=== PATIENT | male | born 1950 | race Caucasian/White ===

== ENCOUNTER → 2023-07-22 10:59 | Outpatient (CLI) | payer MEDICARE, BC, SELFPAY ==
--- NOTE | 2023-07-22 | DI.MRI.S_ITS ---
PROCEDURE: MR PELIS WO/W CON INDICATIONS: MAL KATHRIN OF BLADDER TECHNIQUE: Coronal HASTE, sagittal T2 FSE, axial T1 FSE, axial and coronal nonbreath-hold T2 FSE. Axial dynamic VIBE during administration of contrast. Post-contrast axial and coronal VIBE/2-D FLASH with fat saturation from the iliac crests to the symphysis. Optional diffusion weighted imaging and ADC may be performed. COMPARISON: None. FINDINGS: Image quality: Excellent. Bowel and peritoneum: No pathologic free pelvic fluid. Inferior colon and small bowel loops are normal in caliber. Colonic diverticulosis without evidence of diverticulitis. Genitourinary system: Bladder wall trabeculation, predominantly at the posterior dome. No measurable mass is seen. There is wall stratification the urinary bladder. Bladder debris is present. No hydronephrosis. Bladder diverticula are present. Nodes and vessels: A pair of 6-7 mm short axis left obturator chain nodes (series 5, image 9). Soft tissues: No inguinal hernias. Bones: Marrow is normal in overall signal. IMPRESSION: Bladder wall trabeculation, without measurable mass. This underlying trabeculation could obscure a small mass . No invasion beyond the muscle is identified. No hydronephrosis. A pair of borderline enlarged left obturator chain lymph nodes, mildly suspicious for palma disease. Dictated by: Tommy Kumar M.D. on 07/22/2023 at 12:32 Approved by: Tommy Kumar M.D. on 07/22/2023 at 12:46
== END ==
PROVIDERS: PCP Nurse Practitioner Family; Referring Provider Urology; Visit Provider Urology
DX: C67.9 Malignant neoplasm of bladder, unspecified (principal); N32.89 Other specified disorders of bladder
CPT/HCPCS: 72197

== ENCOUNTER → 2023-12-08 12:05 | Outpatient (CLI) | payer MEDICARE, BC, SELFPAY ==
--- NOTE | 2023-12-08 12:07 | DI.MRI.S_ITS ---
PROCEDURE: MR PELIS WO/W CON INDICATIONS: MALIGNANT NEOPLASM OF URINARY BLADDER TECHNIQUE: Noncontrast coronal T1 spin echo and STIR, sagittal T1 spin echo with fat saturation and STIR, axial T1 spin echo and T2 fast spin echo with fat saturation. After the administration of contrast, axial/sagittal/coronal T1 spin echo with fat saturation through the pelvis . COMPARISON: [facility], MR, MR PELVIS WO/W CON, 07/22/2023, 11:23. FINDINGS: Image quality: Diagnostic Lower abdomen: Colonic diverticula. No small bowel obstruction in the lower abdomen. No pathologic ascites There is wall thickening and mucosal hyperemia of the sigmoid colon. Bladder: Diffuse trabeculations and diverticula. There is similar wall thickening in the left lateral wall compared to 07/22/2023. Wall thickening also involves the superior posterior wall. Mucosal hyperemia is seen. The distal ureters partially seen are ectatic Reproductive organs: Enlarged heterogeneous prostate with median lobe hypertrophy, partially visualized, likely sequelae of BPH. Consider correlation with PSA and if necessary, dedicated prostate MRI. Rectum: Unremarkable Vessels and lymph nodes: Prominent left obturator lymph node again seen, measuring a maximum short axis diameter of 7 mm (5/9). No aneurysmal vessel identified Pelvic wall: Unremarkable Bones: No acute or suspicious osseous finding. There are degenerative changes. IMPRESSION: Overall similar appearance of the bladder, with numerous trabeculations and diverticula, as well as wall thickening along the superior and left lateral aspect. Consider cystoscopy surveillance. Prominent left obturator lymph node again seen, measuring a maximum short axis diameter of 7 mm (5/9). No new or enlarging disease elsewhere. Wall thickening and mucosal hyperemia of the sigmoid colon, with numerous diverticula, likely chronic diverticular disease. Correlate with any symptoms and possible colonoscopy if not already obtained. Other findings above. Approved by: Usman Caicedo M.D. on 12/09/2023 at 11:58
== END ==
PROVIDERS: PCP Nurse Practitioner Family; Referring Provider Urology; Visit Provider Urology
DX: C67.9 Malignant neoplasm of bladder, unspecified (principal); N32.89 Other specified disorders of bladder; N32.3 Diverticulum of bladder; N40.0 Benign prostatic hyperplasia without lower urinary tract symptoms; K57.30 Diverticulosis of large intestine without perforation or abscess without bleeding
CPT/HCPCS: 72197; A9579

== ENCOUNTER → 2023-12-10 11:55 | Outpatient (CLI) | payer MEDICARE, BC, SELFPAY ==
--- NOTE | 2023-12-10 11:56 | DI.CT.S_ITS ---
PROCEDURE: CT CHEST W CON INDICATIONS: Malignant neoplasm of bladder, unspecified TECHNIQUE: After the administration of intravenous contrast, 5 mm thick sections acquired from the pulmonary apices to the posterior costophrenic angles. 1 mm axial lung, 5 mm thick coronal and sagittal reformats and 7 mm axial MIP were acquired. For radiation dose reduction, the following was used: automated exposure control, adjustment of mA and/or kV according to patient size. COMPARISON: None. FINDINGS: Image quality: Diagnostic. Lower Neck: No enlarged lymph nodes. Thyroid: No thyroid nodules which require sonographic follow up, per consensus guidelines. Axillae: No enlarged lymph nodes. Chest Wall: Unremarkable. Bones: Unremarkable. Lungs and Pleura: No pneumothorax or pleural effusions. No consolidation or suspicious nodules. A few bronchial secretions are present. Heart: Heart size is normal. No pericardial effusion. Thoracic Vessels: The aorta and pulmonary arteries demonstrate normal size. Mediastinum and Chantel: No enlarged lymph nodes. Esophagus: No wall thickening. No hiatal hernia. Upper Abdomen: Visualized upper abdomen solid organs and bowel loops appear normal. IMPRESSION: No evidence of metastatic disease in the chest. Dictated by: Tommy Kumar M.D. on 12/11/2023 at 9:59 Approved by: Tommy Kumar M.D. on 12/11/2023 at 10:08
[2023-12-10 13:19] LABS: Appearance Urine UA SL CLOUDY; Bilirubin Urine UA NEGATIVE (NEGATIVE); Color Urine UA YELLOW; Glucose Urine UA NEGATIVE (Negative); Ketones Urine UA NEGATIVE (NEGATIVE); Leukocyte Esterase Urine UA TRACE (NEGATIVE); Nitrite Urine UA NEGATIVE (Negative); Occult Blood Urine UA 3+ (Negative); Protein Urine UA TRACE (Negative); Specific Gravity Urine UA 1.025 (1.000-1.035); Urobilinogen Urine UA 0.2 E.U./dL (0.2); pH Urine UA 5.5 (4.5-8.0)
[2023-12-10 13:22] LABS: Urine Volume 10mL (spun)
[2023-12-10 13:24] LABS: Bacteria Urine None Seen; Culture Indicated Urine Cult Not Indicated; RBC Urine 10-30/HPF (0-5/HPF); Squamous Epithelial Cell Urine None Seen (0-5/HPF); WBC Urine None Seen (0-5/HPF)
[2023-12-10 14:06] LABS: Estimated Glomerular Filt Rate > 60 mL/min (>60)
== END ==
PROVIDERS: Radiology Diagnostic Radiology; PCP Nurse Practitioner Family; Referring Provider Urology; Visit Provider Urology
DX: C67.9 Malignant neoplasm of bladder, unspecified (principal)
CPT/HCPCS: 36415; 71260; 81001; 82565; Q9967

== ENCOUNTER → 2023-12-21 14:26 | Outpatient (CLI) | payer MEDICARE, BC, SELFPAY ==
--- NOTE | 2023-12-21 14:28 | DI.CT.S_ITS ---
PROCEDURE: CT CHEST ABD PEL W CON INDICATIONS: UROTHELIAL CANCER TECHNIQUE: After the administration of intravenous contrast, 5 mm thick sections acquired from the lung apices to the symphysis. 5 mm coronal and sagittal reformats were performed, with additional 7 mm MIP reformats through the lungs. For radiation dose reduction, the following was used: automated exposure control, adjustment of mA and/or kV according to patient size. COMPARISON: [facility], CT, CT CHEST W CON, 12/10/2023, 14:13[facility], MR, MR PELVIS WO W CON, 12/08/2023, 12:14. FINDINGS: Image quality: Diagnostic Lungs and pleura: No dense airspace disease. Scattered scarring atelectasis. Focal pleural thickening is seen in the superior segment of the right lower lobe. No drainable effusions. Mediastinum, heart, and esophagus: No hiatal hernia. Normal heart size. No pathologic lymph nodes by size criteria. Chest wall and thyroid: Unremarkable chest wall and thyroid Liver: Unremarkable Gallbladder and biliary system: Unremarkable, nondilated Pancreas: No ductal dilation Spleen: Nonenlarged Adrenals: No discrete nodules Kidneys: No solid mass or hydronephrosis. Right renal cyst is present. No complicated or solid lesion requiring follow-up identified. Right lower pole nonobstructing calculus is seen. Subcentimeter lesions are too small to characterize, probably also cysts Vessels and lymph nodes: Main portal vein is not well assessed due to mixing artifact. 6-7 mm left obturator nodes are again seen. 2/114. No enlarged retroperitoneal lymph nodes by size criteria. No abdominal aortic aneurysm. Bowel and peritoneum: No evidence of small bowel obstruction. Colonic diverticula. Distal colonic wall thickening is present, likely chronic diverticular disease, which could be better evaluated with colonoscopy. Body wall: Small fat containing left inguinal hernia. Small fat containing umbilical hernia. Pelvis: Irregular wall thickening of the bladder, particularly at the superior aspect and left aspect. There are numerous diverticula in trabeculations. Heterogeneous prostate with probable median lobe hypertrophy and sequelae of BPH. Consider PSA correlation. Bones: Degenerative changes. IMPRESSION: Wall thickening of the bladder at the dome and left lateral aspect again seen, consider cystoscopy correlation. Prominent left obturator lymph nodes are also again seen. No active metastatic disease identified in the chest or abdomen. Other findings as above. Dictated by: Usman Caicedo M.D. on 12/21/2023 at 16:39 Approved by: Usman Caicedo M.D. on 12/21/2023 at 16:49
== END ==
PROVIDERS: PCP Nurse Practitioner Family; Referring Provider Internal Medicine Hematology & Oncology; Visit Provider Internal Medicine Hematology & Oncology
DX: C68.9 Malignant neoplasm of urinary organ, unspecified (principal); N32.3 Diverticulum of bladder; N32.89 Other specified disorders of bladder; N28.1 Cyst of kidney, acquired; N20.0 Calculus of kidney; K57.90 Diverticulosis of intestine, part unspecified, without perforation or abscess without bleeding; K40.90 Unilateral inguinal hernia, without obstruction or gangrene, not specified as recurrent; K42.9 Umbilical hernia without obstruction or gangrene
CPT/HCPCS: 71260; 74177; Q9967

== ENCOUNTER → 2023-12-29 13:16 | Outpatient (CLI) | payer MEDICARE, BC, SELFPAY ==
[2023-12-29 14:50] LABS: Add Manual Diff / Slide Review NO; Basophils Absolute Auto 100 /uL (0-100); Eosinophils Absolute Auto 500 /uL (0-450); Eosinophils Percent Auto 8.7 % (2-4); Hematocrit 38.9 % (41-53); Hemoglobin 13.2 g/dL (13.5-17.5); Lymphocytes Absolute Auto 1400 /uL (1100-4500); Lymphocytes Percent Auto 24.6 % (25-40); Mean Corpuscular HGB Conc 33.8 % (30-36); Mean Corpuscular Volume 88.5 fL (80-100); Monocytes Absolute Auto 500 /uL (0-900); Monocytes Percent Auto 9.5 % (3-14); Neutrophils Absolute Auto 3100 /uL (1500-7000); Neutrophils Percent Auto 56.2 % (50-75); Platelet Count 243 X10^3/uL (150-400); Red Cell Distribution Width 15.6 % (11.6-14.8); White Blood Cell Count 5.5 X10^3/uL (4.5-11.0)
[2023-12-29 14:58] LABS: Alanine Aminotransferase 32 IU/L (<50); Albumin Globulin Ratio 1.6 (1.0-2.8); Alkaline Phosphatase 68 U/L (38-126); Aspartate Aminotransferase 30 IU/L (17-59); BUN Creatinine Ratio 17.6 (6-22); Bilirubin Total 0.8 mg/dL (0.2-1.3); Blood Urea Nitrogen 16 mg/dL (9-20); Carbon Dioxide 29 mmol/L (22-32); Chloride 111 mmol/L (98-107); Estimated Glomerular Filt Rate > 60 mL/min (>60); Globulin 2.5 g/dL (1.7-4.1); Glucose 96 mg/dL (80-110); HEMOLYSIS < 15 (0-50); Phosphorous 3.6 mg/dL (2.3-3.7); Potassium 4.4 mmol/L (3.4-5.1); Sodium 141 mmol/L (137-145); Total Protein 6.5 g/dL (6.3-8.2)
== END ==
PROVIDERS: PCP Nurse Practitioner Family; Referring Provider Internal Medicine Hematology & Oncology; Visit Provider Internal Medicine Hematology & Oncology
DX: C67.9 Malignant neoplasm of bladder, unspecified (principal); C67.4 Malignant neoplasm of posterior wall of bladder
CPT/HCPCS: 36415; 80053; 84100; 85025

== ENCOUNTER → 2024-01-06 14:23 | Outpatient (CLI) | payer MEDICARE, BC, SELFPAY ==
[2024-01-06 15:34] LABS: Alanine Aminotransferase 63 IU/L (<50); Albumin 3.6 g/dL (3.5-5.0); Albumin Globulin Ratio 1.5 (1.0-2.8); Alkaline Phosphatase 64 U/L (38-126); Aspartate Aminotransferase 31 IU/L (17-59); BUN Creatinine Ratio 30.3 (6-22); Bilirubin Total 1.7 mg/dL (0.2-1.3); Blood Urea Nitrogen 27 mg/dL (9-20); Calcium 8.6 mg/dL (8.4-10.2); Carbon Dioxide 27 mmol/L (22-32); Chloride 104 mmol/L (98-107); Estimated Glomerular Filt Rate > 60 mL/min (>60); Globulin 2.4 g/dL (1.7-4.1); Glucose 78 mg/dL (80-110); HEMOLYSIS < 15 (0-50); Potassium 3.9 mmol/L (3.4-5.1); Sodium 134 mmol/L (137-145)
== END ==
PROVIDERS: PCP Nurse Practitioner Family; Referring Provider Internal Medicine Hematology & Oncology; Visit Provider Internal Medicine Hematology & Oncology
DX: C67.9 Malignant neoplasm of bladder, unspecified (principal)
CPT/HCPCS: 36415; 80053

== ENCOUNTER → 2024-01-07 11:56 | Outpatient (CLI) | payer MEDICARE, BC, SELFPAY ==
[2024-01-07 13:23] LABS: Add Manual Diff / Slide Review NO; Basophils Absolute Auto 0 /uL (0-100); Basophils Percent Auto 0.1 % (0-2); Eosinophils Absolute Auto 100 /uL (0-450); Eosinophils Percent Auto 3.2 % (2-4); Hematocrit 39.3 % (41-53); Hemoglobin 13.3 g/dL (13.5-17.5); Lymphocytes Absolute Auto 900 /uL (1100-4500); Mean Corpuscular HGB Conc 33.8 % (30-36); Mean Corpuscular Hemoglobin 30.1 PG (26-34); Mean Corpuscular Volume 89.1 fL (80-100); Monocytes Absolute Auto 0 /uL (0-900); Neutrophils Absolute Auto 2100 /uL (1500-7000); Neutrophils Percent Auto 66.7 % (50-75); Platelet Count 131 X10^3/uL (150-400); Red Blood Cell Count 4.41 X10^6/uL (4.5-5.9); Red Cell Distribution Width 15.3 % (11.6-14.8); White Blood Cell Count 3.2 X10^3/uL (4.5-11.0)
[2024-01-07 13:41] LABS: Phosphorous 4.3 mg/dL (2.3-3.7)
[2024-01-08 13:16] LABS: Alanine Aminotransferase 53 IU/L (<50); Albumin 3.3 g/dL (3.5-5.0); Albumin Globulin Ratio 1.2 (1.0-2.8); Alkaline Phosphatase 67 U/L (38-126); Aspartate Aminotransferase 26 IU/L (17-59); BUN Creatinine Ratio 28.4 (6-22); Bilirubin Total 1.1 mg/dL (0.2-1.3); Blood Urea Nitrogen 27 mg/dL (9-20); Calcium 8.7 mg/dL (8.4-10.2); Carbon Dioxide 28 mmol/L (22-32); Chloride 103 mmol/L (98-107); Estimated Glomerular Filt Rate > 60 mL/min (>60); Globulin 2.8 g/dL (1.7-4.1); Glucose 114 mg/dL (80-110); HEMOLYSIS < 15 (0-50); Potassium 4.3 mmol/L (3.4-5.1); Sodium 135 mmol/L (137-145); Total Protein 6.1 g/dL (6.3-8.2)
== END ==
PROVIDERS: PCP Nurse Practitioner Family; Referring Provider Internal Medicine Hematology & Oncology; Visit Provider Internal Medicine Hematology & Oncology
DX: C67.9 Malignant neoplasm of bladder, unspecified (principal)
CPT/HCPCS: 36415; 80053; 84100; 85025

== ENCOUNTER → 2024-01-11 13:08 | Outpatient (CLI) | payer MEDICARE, BC, SELFPAY ==
--- NOTE | 2024-01-11 13:14 | DI.US.S_ITS ---
PROCEDURE: US PERIPH VENOUS UP EXTREM LT INDICATIONS: PAIN TECHNIQUE: Real-time imaging, as well as color and pulse Doppler interrogation, was performed of the upper extremity deep veins from the inferior neck to the antecubital fossa. COMPARISON: None. FINDINGS: The internal jugular vein, visualized portions of the subclavian vein, axillary, and brachial veins are free of intraluminal thrombus. Where physically possible, the veins are normally compressible. Color and pulse Doppler demonstrate normal intraluminal flow, with expected phasicity and pulsatility. Additional scanning of the cephalic vein of the superficial system demonstrates normal compressibility, without thrombus. There is intraluminal thrombus with loss of compressibility in the basilic vein. IMPRESSION: Intraluminal thrombus appearing partially occlusive is present in the basilic vein. Dictated by: Sandra Marquez M.D. on 01/11/2024 at 14:53 Approved by: Sandra Marquez M.D. on 01/11/2024 at 14:54
== END ==
PROVIDERS: PCP Nurse Practitioner Family; Referring Provider Nurse Practitioner Family; Visit Provider Nurse Practitioner Family
DX: I82.612 Acute embolism and thrombosis of superficial veins of left upper extremity (principal); M79.602 Pain in left arm
CPT/HCPCS: 93971

== ENCOUNTER → 2024-01-20 11:48 | Outpatient (CLI) | payer MEDICARE, BC, SELFPAY ==
[2024-01-20 12:52] LABS: Add Manual Diff / Slide Review NO; Basophils Absolute Auto 0 /uL (0-100); Basophils Percent Auto 0.7 % (0-2); Eosinophils Absolute Auto 100 /uL (0-450); Eosinophils Percent Auto 3.7 % (2-4); Hematocrit 34.6 % (41-53); Hemoglobin 11.6 g/dL (13.5-17.5); Lymphocytes Absolute Auto 1000 /uL (1100-4500); Lymphocytes Percent Auto 41.2 % (25-40); Mean Corpuscular HGB Conc 33.7 % (30-36); Mean Corpuscular Hemoglobin 30.2 PG (26-34); Mean Corpuscular Volume 89.7 fL (80-100); Monocytes Absolute Auto 300 /uL (0-900); Monocytes Percent Auto 11.1 % (3-14); Neutrophils Absolute Auto 1000 /uL (1500-7000); Neutrophils Percent Auto 43.3 % (50-75); Platelet Count 355 X10^3/uL (150-400); Red Blood Cell Count 3.86 X10^6/uL (4.5-5.9); Red Cell Distribution Width 14.7 % (11.6-14.8); White Blood Cell Count 2.4 X10^3/uL (4.5-11.0)
[2024-01-20 13:45] LABS: Alanine Aminotransferase 23 IU/L (<50); Albumin 3.4 g/dL (3.5-5.0); Albumin Globulin Ratio 1.4 (1.0-2.8); Alkaline Phosphatase 77 U/L (38-126); Aspartate Aminotransferase 23 IU/L (17-59); BUN Creatinine Ratio 16.9 (6-22); Bilirubin Total 0.4 mg/dL (0.2-1.3); Blood Urea Nitrogen 14 mg/dL (9-20); Calcium 8.7 mg/dL (8.4-10.2); Carbon Dioxide 29 mmol/L (22-32); Chloride 107 mmol/L (98-107); Estimated Glomerular Filt Rate > 60 mL/min (>60); Globulin 2.5 g/dL (1.7-4.1); Glucose 115 mg/dL (80-110); HEMOLYSIS < 15 (0-50); Phosphorous 3.4 mg/dL (2.3-3.7); Potassium 4.1 mmol/L (3.4-5.1); Sodium 138 mmol/L (137-145); Total Protein 5.9 g/dL (6.3-8.2)
== END ==
PROVIDERS: PCP Nurse Practitioner Family; Referring Provider Internal Medicine Hematology & Oncology; Visit Provider Internal Medicine Hematology & Oncology
DX: C67.4 Malignant neoplasm of posterior wall of bladder (principal)
CPT/HCPCS: 36415; 80053; 84100; 85025

== ENCOUNTER → 2024-01-26 14:31 | Outpatient (CLI) | payer MEDICARE, BC, SELFPAY ==
[2024-01-26 15:46] LABS: Add Manual Diff / Slide Review NO; Basophils Absolute Auto 0 /uL (0-100); Basophils Percent Auto 1.3 % (0-2); Eosinophils Absolute Auto 100 /uL (0-450); Eosinophils Percent Auto 3.1 % (2-4); Hematocrit 32.7 % (41-53); Hemoglobin 11.3 g/dL (13.5-17.5); Lymphocytes Absolute Auto 700 /uL (1100-4500); Lymphocytes Percent Auto 26.2 % (25-40); Mean Corpuscular HGB Conc 34.5 % (30-36); Mean Corpuscular Hemoglobin 30.5 PG (26-34); Mean Corpuscular Volume 88.4 fL (80-100); Monocytes Absolute Auto 100 /uL (0-900); Monocytes Percent Auto 5.2 % (3-14); Neutrophils Absolute Auto 1800 /uL (1500-7000); Neutrophils Percent Auto 64.2 % (50-75); Platelet Count 472 X10^3/uL (150-400); Red Blood Cell Count 3.69 X10^6/uL (4.5-5.9); Red Cell Distribution Width 14.9 % (11.6-14.8); White Blood Cell Count 2.8 X10^3/uL (4.5-11.0)
[2024-01-26 16:05] LABS: Alanine Aminotransferase 60 IU/L (<50); Albumin 3.5 g/dL (3.5-5.0); Albumin Globulin Ratio 1.5 (1.0-2.8); Alkaline Phosphatase 74 U/L (38-126); Aspartate Aminotransferase 32 IU/L (17-59); BUN Creatinine Ratio 22.6 (6-22); Bilirubin Total 0.6 mg/dL (0.2-1.3); Blood Urea Nitrogen 26 mg/dL (9-20); Calcium 8.5 mg/dL (8.4-10.2); Carbon Dioxide 28 mmol/L (22-32); Chloride 103 mmol/L (98-107); Estimated Glomerular Filt Rate > 60 mL/min (>60); Globulin 2.4 g/dL (1.7-4.1); Glucose 101 mg/dL (80-110); HEMOLYSIS < 15 (0-50); Phosphorous 4.4 mg/dL (2.3-3.7); Potassium 4.5 mmol/L (3.4-5.1); Sodium 136 mmol/L (137-145); Total Protein 5.9 g/dL (6.3-8.2)
== END ==
PROVIDERS: PCP Nurse Practitioner Family; Referring Provider Internal Medicine Hematology & Oncology; Visit Provider Internal Medicine Hematology & Oncology
DX: C67.4 Malignant neoplasm of posterior wall of bladder (principal)
CPT/HCPCS: 36415; 80053; 84100; 85025

== ENCOUNTER → 2024-02-03 10:00 | Outpatient (CLI) | payer MEDICARE, BC, SELFPAY ==
--- NOTE | 2024-02-03 10:02 | DI.CT.S_ITS ---
PROCEDURE: CT CHEST ABD PEL W CON INDICATIONS: UROTHELIAL CANCER TECHNIQUE: After the administration of intravenous contrast, 5 mm thick sections acquired from the lung apices to the symphysis. 5 mm coronal and sagittal reformats were performed, with additional 7 mm MIP reformats through the lungs. For radiation dose reduction, the following was used: automated exposure control, adjustment of mA and/or kV according to patient size. COMPARISON: [facility], CT, CT CHEST ABD PEL W CON, 12/21/2023, 15:36. FINDINGS: Image quality: Excellent. CHEST: Lower Neck: No enlarged lymph nodes. Thyroid: No thyroid nodules which require sonographic follow up, per consensus guidelines. Axillae: No enlarged lymph nodes. Chest Wall: Unremarkable. Lungs and Pleura: No pneumothorax or pleural effusions. Stable 2 mm solid nodule in the posterior right upper lobe (series 3, image 102). Stable subpleural scarring in the superior right lower lobe. Heart: Heart size is normal. No pericardial effusion. Thoracic Vessels: The aorta and pulmonary arteries demonstrate normal size. Mediastinum and Chantel: No enlarged lymph nodes. Esophagus: No wall thickening. No hiatal hernia. ABDOMEN: Liver: Stable subcentimeter hypoattenuating lesion in segment 3 (series 2, image 73). Gallbladder: No radiopaque gallstones or wall thickening. Biliary ducts: No biliary dilation. Pancreas: No ductal dilation. Spleen: Size is within normal limits. Adrenal Glands: No adrenal nodules. Kidneys and Ureters: No hydronephrosis. No solid mass. No complex renal cystic lesion which requires follow up. 5 mm nonobstructing right-sided nephrolithiasis. Mild dilation of the distal left ureter. Stomach and Bowel: Normal colonic caliber, without significant wall thickening. Colonic diverticulosis without evidence of diverticulitis. Peritoneum: No abnormal intraperitoneal fluid. No free air. Ventral Wall: No significant ventral hernia. Abdominal Nodes: No retroperitoneal or mesenteric adenopathy by size criteria. Vessels: Aorta and inferior vena cava are normal in size. PELVIS: Pelvic Organs: Unremarkable. Bladder: Stable wall thickening of the bladder dome. There is perivesicular fat stranding and irregular contour of the bladder dome, most consistent with extension beyond the muscular layer (series 2, image 117). Pelvic Nodes: The left obturator chain nodes have slightly decreased in size, measuring 4 mm and 5.5 mm short axis, previously 5.5 and the 6.1 mm. Miscellaneous: No inguinal hernias are seen. Bones: No aggressive osseous abnormality. IMPRESSION: Similar appearance of the bladder dome mass, with evidence invasion beyond the bladder wall. Mild left-sided ureterectasis is present. Slight interval decrease in size of the left obturator chain nodes. No definite evidence of metastatic disease. Dictated by: Tommy Kumar M.D. on 02/03/2024 at 17:21 Approved by: Tommy Kumar M.D. on 02/03/2024 at 17:29
== END ==
LOC: CT 10:01
PROVIDERS: PCP Nurse Practitioner Family; Referring Provider Nurse Practitioner Family; Visit Provider Nurse Practitioner Family
DX: C68.9 Malignant neoplasm of urinary organ, unspecified (principal); N13.4 Hydroureter; K57.90 Diverticulosis of intestine, part unspecified, without perforation or abscess without bleeding
CPT/HCPCS: 71260; 74177; Q9967

== ENCOUNTER → 2024-02-04 15:46 | Outpatient (CLI) | payer MEDICARE, BC, SELFPAY ==
--- NOTE | 2024-02-04 15:47 | DI.US.S_ITS ---
PROCEDURE: US PERIPH VENOUS UP EXTREM RT INDICATIONS: UROTHLIAL CANCER TECHNIQUE: Real-time imaging, as well as color and pulse Doppler interrogation, was performed of the upper extremity deep veins from the inferior neck to the antecubital fossa. COMPARISON: none FINDINGS: Noncompressible thrombus is seen in the cephalic vein. The internal jugular vein, visualized portions of the subclavian vein, axillary, and brachial veins are free of intraluminal thrombus. Otherwise where physically possible, the veins are normally compressible. Color and pulse Doppler demonstrate normal intraluminal flow, with expected phasicity and pulsatility. Additional scanning of the basilic veins of the superficial system demonstrates normal compressibility, without thrombus. IMPRESSION: 1. Thrombus of the cephalic vein (this is considered superficial vein) 2. No findings of upper extremity deep venous thrombosis can be seen. Dictated by: Mendoza Castaneda M.D. on 02/05/2024 at 10:50 Approved by: Mendoza Castaneda M.D. on 02/05/2024 at 10:54
== END ==
PROVIDERS: PCP Nurse Practitioner Family; Referring Provider Nurse Practitioner Family; Visit Provider Nurse Practitioner Family
DX: C68.9 Malignant neoplasm of urinary organ, unspecified (principal); I82.611 Acute embolism and thrombosis of superficial veins of right upper extremity
CPT/HCPCS: 93971

== ENCOUNTER → 2024-02-11 11:24 | Outpatient (CLI) | payer MEDICARE, BC, SELFPAY ==
[2024-02-11 12:22] LABS: Add Manual Diff / Slide Review NO; Basophils Absolute Auto 0 /uL (0-100); Basophils Percent Auto 0.3 % (0-2); Eosinophils Absolute Auto 100 /uL (0-450); Eosinophils Percent Auto 0.9 % (2-4); Hematocrit 31.6 % (41-53); Hemoglobin 10.9 g/dL (13.5-17.5); Lymphocytes Absolute Auto 1400 /uL (1100-4500); Lymphocytes Percent Auto 10.6 % (25-40); Mean Corpuscular HGB Conc 34.3 % (30-36); Mean Corpuscular Hemoglobin 30.7 PG (26-34); Mean Corpuscular Volume 89.3 fL (80-100); Monocytes Absolute Auto 1300 /uL (0-900); Monocytes Percent Auto 9.9 % (3-14); Neutrophils Absolute Auto 10500 /uL (1500-7000); Neutrophils Percent Auto 78.3 % (50-75); Platelet Count 178 X10^3/uL (150-400); Red Blood Cell Count 3.54 X10^6/uL (4.5-5.9); White Blood Cell Count 13.4 X10^3/uL (4.5-11.0)
[2024-02-11 13:03] LABS: Alanine Aminotransferase 21 IU/L (<50); Albumin 3.7 g/dL (3.5-5.0); Albumin Globulin Ratio 1.8 (1.0-2.8); Alkaline Phosphatase 103 U/L (38-126); Aspartate Aminotransferase 23 IU/L (17-59); BUN Creatinine Ratio 21.7 (6-22); Bilirubin Total 0.4 mg/dL (0.2-1.3); Blood Urea Nitrogen 18 mg/dL (9-20); Calcium 8.8 mg/dL (8.4-10.2); Carbon Dioxide 24 mmol/L (22-32); Chloride 108 mmol/L (98-107); Estimated Glomerular Filt Rate > 60 mL/min (>60); Globulin 2.1 g/dL (1.7-4.1); Glucose 114 mg/dL (80-110); HEMOLYSIS < 15 (0-50); Potassium 4.2 mmol/L (3.4-5.1); Sodium 138 mmol/L (137-145); Total Protein 5.8 g/dL (6.3-8.2)
== END ==
PROVIDERS: PCP Nurse Practitioner Family; Referring Provider Internal Medicine Hematology & Oncology; Visit Provider Internal Medicine Hematology & Oncology
DX: C67.4 Malignant neoplasm of posterior wall of bladder (principal)
CPT/HCPCS: 36415; 80053; 84100; 85025

== ENCOUNTER → 2024-02-18 11:34 | Outpatient (CLI) | payer MEDICARE, BC, SELFPAY ==
[2024-02-18 12:19] LABS: Add Manual Diff / Slide Review NO; Basophils Absolute Auto 0 /uL (0-100); Eosinophils Absolute Auto 0 /uL (0-450); Eosinophils Percent Auto 0.9 % (2-4); Hematocrit 30.8 % (41-53); Hemoglobin 10.7 g/dL (13.5-17.5); Lymphocytes Absolute Auto 1100 /uL (1100-4500); Lymphocytes Percent Auto 24.3 % (25-40); Mean Corpuscular HGB Conc 34.8 % (30-36); Mean Corpuscular Hemoglobin 31.1 PG (26-34); Mean Corpuscular Volume 89.2 fL (80-100); Monocytes Absolute Auto 200 /uL (0-900); Monocytes Percent Auto 4.5 % (3-14); Neutrophils Absolute Auto 3200 /uL (1500-7000); Neutrophils Percent Auto 69.3 % (50-75); Platelet Count 332 X10^3/uL (150-400); Red Blood Cell Count 3.45 X10^6/uL (4.5-5.9); Red Cell Distribution Width 15.7 % (11.6-14.8); White Blood Cell Count 4.7 X10^3/uL (4.5-11.0)
[2024-02-18 12:52] LABS: Alanine Aminotransferase 47 IU/L (<50); Albumin 3.9 g/dL (3.5-5.0); Albumin Globulin Ratio 1.6 (1.0-2.8); Alkaline Phosphatase 84 U/L (38-126); Aspartate Aminotransferase 25 IU/L (17-59); BUN Creatinine Ratio 26.6 (6-22); Bilirubin Total 0.7 mg/dL (0.2-1.3); Blood Urea Nitrogen 25 mg/dL (9-20); Calcium 9.2 mg/dL (8.4-10.2); Carbon Dioxide 23 mmol/L (22-32); Chloride 106 mmol/L (98-107); Estimated Glomerular Filt Rate > 60 mL/min (>60); Globulin 2.5 g/dL (1.7-4.1); Glucose 124 mg/dL (80-110); HEMOLYSIS < 15 (0-50); Phosphorous 3.5 mg/dL (2.3-3.7); Potassium 4.3 mmol/L (3.4-5.1); Sodium 135 mmol/L (137-145); Total Protein 6.4 g/dL (6.3-8.2)
== END ==
PROVIDERS: PCP Nurse Practitioner Family; Referring Provider Internal Medicine Hematology & Oncology; Visit Provider Internal Medicine Hematology & Oncology
DX: C67.4 Malignant neoplasm of posterior wall of bladder (principal); C67.9 Malignant neoplasm of bladder, unspecified
CPT/HCPCS: 36415; 80053; 84100; 85025

== ENCOUNTER → 2024-03-03 13:50 | Outpatient (CLI) | payer MEDICARE, BC, SELFPAY ==
[2024-03-03 15:21] LABS: Hematocrit 28.1 % (41-53); Hemoglobin 9.6 g/dL (13.5-17.5); Mean Corpuscular HGB Conc 34.3 % (30-36); Mean Corpuscular Hemoglobin 31.8 PG (26-34); Mean Corpuscular Volume 92.7 fL (80-100); Platelet Count 255 X10^3/uL (150-400); Red Blood Cell Count 3.03 X10^6/uL (4.5-5.9); Red Cell Distribution Width 17.9 % (11.6-14.8); White Blood Cell Count 10.5 X10^3/uL (4.5-11.0)
[2024-03-03 15:29] LABS: Alanine Aminotransferase 20 IU/L (<50); Albumin 3.7 g/dL (3.5-5.0); Albumin Globulin Ratio 1.5 (1.0-2.8); Alkaline Phosphatase 94 U/L (38-126); Aspartate Aminotransferase 20 IU/L (17-59); BUN Creatinine Ratio 19.5 (6-22); Bilirubin Total 0.3 mg/dL (0.2-1.3); Blood Urea Nitrogen 17 mg/dL (9-20); Carbon Dioxide 23 mmol/L (22-32); Chloride 107 mmol/L (98-107); Estimated Glomerular Filt Rate > 60 mL/min (>60); Globulin 2.5 g/dL (1.7-4.1); Glucose 117 mg/dL (80-110); HEMOLYSIS < 15 (0-50); Phosphorous 3.5 mg/dL (2.3-3.7); Potassium 4.1 mmol/L (3.4-5.1); Sodium 136 mmol/L (137-145); Total Protein 6.2 g/dL (6.3-8.2)
[2024-03-03 16:05] LABS: Add Manual Diff / Slide Review YES
[2024-03-03 16:12] LABS: Neutrophils Absolute Manual 7350 /uL (3000-5900); Total Cells Counted 100
[2024-03-03 16:17] LABS: Anisocytosis 1+
== END ==
LOC: LAB 13:55
PROVIDERS: PCP Nurse Practitioner Family; Referring Provider Internal Medicine Hematology & Oncology; Visit Provider Internal Medicine Hematology & Oncology
DX: C67.9 Malignant neoplasm of bladder, unspecified (principal); C67.4 Malignant neoplasm of posterior wall of bladder
CPT/HCPCS: 36415; 80053; 84100; 85007; 85025

== ENCOUNTER → 2024-03-09 10:32 | Outpatient (CLI) | payer MEDICARE, BC, SELFPAY ==
[2024-03-09 12:17] LABS: Add Manual Diff / Slide Review NO; Basophils Absolute Auto 0 /uL (0-100); Basophils Percent Auto 0.4 % (0-2); Eosinophils Absolute Auto 100 /uL (0-450); Eosinophils Percent Auto 1.4 % (2-4); Hematocrit 26.8 % (41-53); Hemoglobin 9.3 g/dL (13.5-17.5); Lymphocytes Absolute Auto 1000 /uL (1100-4500); Lymphocytes Percent Auto 26.5 % (25-40); Mean Corpuscular HGB Conc 34.8 % (30-36); Mean Corpuscular Volume 91.8 fL (80-100); Monocytes Absolute Auto 100 /uL (0-900); Neutrophils Absolute Auto 2700 /uL (1500-7000); Neutrophils Percent Auto 68.7 % (50-75); Platelet Count 344 X10^3/uL (150-400); Red Blood Cell Count 2.92 X10^6/uL (4.5-5.9); Red Cell Distribution Width 18.9 % (11.6-14.8); White Blood Cell Count 3.9 X10^3/uL (4.5-11.0)
[2024-03-09 12:31] LABS: Alanine Aminotransferase 60 IU/L (<50); Albumin 3.6 g/dL (3.5-5.0); Albumin Globulin Ratio 1.6 (1.0-2.8); Alkaline Phosphatase 75 U/L (38-126); Aspartate Aminotransferase 30 IU/L (17-59); Bilirubin Total 0.4 mg/dL (0.2-1.3); Blood Urea Nitrogen 34 mg/dL (9-20); Calcium 9.1 mg/dL (8.4-10.2); Carbon Dioxide 26 mmol/L (22-32); Chloride 101 mmol/L (98-107); Estimated Glomerular Filt Rate > 60 mL/min (>60); Globulin 2.3 g/dL (1.7-4.1); Glucose 98 mg/dL (80-110); HEMOLYSIS < 15 (0-50); Phosphorous 4.5 mg/dL (2.3-3.7); Potassium 4.6 mmol/L (3.4-5.1); Sodium 133 mmol/L (137-145); Total Protein 5.9 g/dL (6.3-8.2)
== END ==
PROVIDERS: PCP Nurse Practitioner Family; Referring Provider Internal Medicine Hematology & Oncology; Visit Provider Internal Medicine Hematology & Oncology
DX: C67.9 Malignant neoplasm of bladder, unspecified (principal)
CPT/HCPCS: 36415; 80053; 84100; 85025

== ENCOUNTER → 2024-03-22 13:07 | Outpatient (CLI) | payer MEDICARE, BC, SELFPAY ==
--- NOTE | 2024-03-22 13:08 | DI.CT.S_ITS ---
PROCEDURE: CT CHEST ABD PEL W CON INDICATIONS: URETHELIAL CANCER TECHNIQUE: After the administration of intravenous contrast, 5 mm thick sections acquired from the lung apices to the symphysis. 5 mm coronal and sagittal reformats were performed, with additional 7 mm MIP reformats through the lungs. For radiation dose reduction, the following was used: automated exposure control, adjustment of mA and/or kV according to patient size. COMPARISON: [facility], CT, CT CHEST ABD PEL W CON, 02/03/2024, 11:00. FINDINGS: Image quality: Excellent. CHEST: Lower Neck: No enlarged lymph nodes. Thyroid: No thyroid nodules which require sonographic follow up, per consensus guidelines. Axillae: No enlarged lymph nodes. Chest Wall: Unremarkable. Lungs and Pleura: No pneumothorax or pleural effusions. No consolidation or suspicious nodules. Stable 2 mm solid nodule in the posterior right upper lobe (series 3, image 87) Heart: Heart size is normal. No pericardial effusion. Thoracic Vessels: The aorta and pulmonary arteries demonstrate normal size. Mediastinum and Chantel: No enlarged lymph nodes. Esophagus: No wall thickening. Trace hiatal hernia. ABDOMEN: Liver: No solid mass. Gallbladder: No radiopaque gallstones or wall thickening. Biliary ducts: No biliary dilation. Pancreas: No ductal dilation. Spleen: Size is within normal limits. Adrenal Glands: No adrenal nodules. Kidneys and Ureters: Mild to moderate right-sided hydronephroureter. No solid mass. No complex renal cystic lesion which requires follow up. 3 mm nonobstructing right-sided nephrolithiasis. Mild left-sided hydroureter. Stomach and Bowel: Normal colonic caliber, without significant wall thickening. Colonic diverticulosis without evidence of diverticulitis. Peritoneum: No abnormal intraperitoneal fluid. No free air. Ventral Wall: No significant ventral hernia. Abdominal Nodes: No retroperitoneal or mesenteric adenopathy by size criteria. Vessels: Aorta and inferior vena cava are normal in size. PELVIS: Pelvic Organs: Unremarkable. Bladder: Similar thickening of the bladder dome, with perivesicular fat stranding and irregular contour of the bladder wall. Pelvic Nodes: Stable nonenlarged left obturator chain nodes (series 2, image 114). Miscellaneous: No inguinal hernias are seen. Bones: No aggressive osseous abnormality. Similar thickening along the left lateral bladder wall. IMPRESSION: Stable appearance of the bladder wall irregularity, with perivesicular fat stranding and external wall irregularity, consistent with transitional cell carcinoma. Similar obturator chain nodes. No evidence of metastatic disease. Moderate right-sided hydronephrosis and hydroureter, and mild left-sided hydroureter, new from prior. Dictated by: Tommy Kumar M.D. on 03/22/2024 at 16:41 Approved by: Tommy Kumar M.D. on 03/22/2024 at 16:47
== END ==
PROVIDERS: PCP Nurse Practitioner Family; Referring Provider Internal Medicine Hematology & Oncology; Visit Provider Internal Medicine Hematology & Oncology
DX: C68.9 Malignant neoplasm of urinary organ, unspecified (principal); N13.30 Unspecified hydronephrosis; N13.4 Hydroureter
CPT/HCPCS: 71260; 74177; Q9967

== ENCOUNTER 2024-05-10 10:13 | Emergency (ER) | payer MEDICARE, BC, SELFPAY ==
--- NOTE | 2024-05-10 10:23 | ED_ITS ---
HPI - Abdominal Pain General Chief Complaint: Abdominal Pain Stated Complaint: sent by urology from Time Seen by Provider: 05/10/24 10:23 History of Present Illness HPI narrative: Patient is a 73-year-old male status post neobladder procedure performed on 05/02/2024 at [facility]. States that he was feeling okay was discharged on 05/14/2024. States that he had bowel movements in the hospital, states that since he was discharged he has only had 3 small pellets of stool, states that he is also having some diffuse abdominal distension mild nausea but no vomiting. States that he has not having any other symptoms, did have flatulence prior to arrival. He states that he called his surgeon and was instructed to come into the emergency department to rule out a bowel obstruction. He states that he is able to tolerate p.o. liquids and solids but has had decreased p.o. intake therefore he has not had much intake since his surgery. Related Data Allergies Allergy/AdvReac Type Severity Reaction Status Date / Time No Known Drug Allergies Allergy Verified 05/10/24 10:28 Review of Systems Review of Systems Narrative: General: Denies fever, chills, weight loss HEENT: Denies headache, eye drainage, eye irritation, head trauma, sore throat, voice change Cardiovascular: Denies any chest pain, palpitations, shortness of breath, tachycardia Respiratory: Denies any shortness of breath, cough, wheeze, stridor GI/: Positive abdominal pain, nausea, decreased bowel movement denies vomiting, diarrhea, bright red blood per rectum, melanotic stools, urinary frequency, urinary retention, dysuria, hematuria MSK: Denies any joint pain, muscle pains, swelling Skin: Denies any rashes, lesions, discoloration Neuro: Denies any headache, lightheadedness, dizziness, fainting, weakness Psych: Denies SI/HI Patient History Social History Smoking Status: Never smoker Exam Narrative Exam Narrative: General: Cooperative, comfortable, well-developed, not in acute distress HEENT: Normocephalic, atraumatic, PERRLA, normal sclera, eyelids normal, Neck: Active full range of motion, atraumatic Chest: Normal to inspection, negative crepitus, no overlying erythema ecchymosis Respiratory: Normal respiratory effort, not in acute respiratory distress, clear to auscultation bilaterally negative cough, wheeze, tachypnea, rhonchi, rales Cardiology: Regular rate rhythm negative gallop, murmur, rubs GI/: Patient with multiple incisions consistent with recent neobladder procedure, incision is well healing no erythema drain noted to the left abdomen, appropriately draining mild tenderness to palpation diffusely of the abdomen but non peritoneal nature, exam deferred MSK: Full range of active range of motion of all 4 extremities, atraumatic Skin: No rashes lesions noted Neuro: Alert awake oriented x3, moves all 4 extremities spontaneously, cranial nerves intact, able to answer all questions appropriately follows commands appropriately Psych: Cooperative, negative suicidal or homicidal ideations Initial Vital Signs Initial Vital Signs: Vital Signs Temperature 98.5 F 05/10/24 10:24 Pulse Rate 79 05/10/24 10:24 Respiratory Rate 16 05/10/24 10:24 Blood Pressure 160/87 H 05/10/24 10:24 Pulse Oximetry 98 05/10/24 10:24 Oxygen Delivery Method Room Air 05/10/24 10:24 Course Orders Ordered: ED Orders 05/10/24 10:33 CBC Auto Diff [Complete Blood Count AUTO DIFF] Stat CMP [Comprehensive Metabolic Panel] Stat Lactate (Lactic Acid) Stat MAG [Magnesium] Stat 05/10/24 12:00 CT abdomen pelvis w con Stat Discontinued Medications Sodium Chloride (Normal Saline 0.9%) 1,000 mls @ 1,000 mls/hr IV BOLUS ONE Stop: 05/10/24 11:59 Last Admin: 05/10/24 11:42 Dose: 1,000 mls/hr Documented By: KATHLEEN Ondansetron HCl (Ondansetron 4 Mg/2 Ml Inj) 4 mg IV NOW ONE Stop: 05/10/24 10:48 Last Admin: 05/10/24 10:57 Dose: 4 mg Documented By: KATHLEEN Vital Signs Vital signs: Vital Signs - 8 hr 05/10/24 10:24 Temperature 98.5 F Pulse Rate 79 Respiratory Rate 16 Blood Pressure 160/87 H Pulse Oximetry 98 Oxygen Delivery Method Room Air MDM - Abdominal Pain Differential Diagnosis Differential diagnosis: Likely abdominal pain, small bowel obstruction and other (Electrolyte abnormality) Lab Data 05/10/24 10:33 05/10/24 10:33 Labs: Lab Results 05/10/24 Range/Units 10:33 WBC 9.6 (4.5-11.0) X10^3/uL RBC 3.08 L (4.5-5.9) X10^6/uL Hgb 10.3 L (13.5-17.5) g/dL Hct 30.3 L (41-53) % MCV 98.2 (80-100) fL MCH 33.6 (26-34) PG MCHC 34.2 (30-36) % RDW 14.8 (11.6-14.8) % Plt Count 369 (150-400) X10^3/uL Neut % (Auto) 71.9 (50-75) % Lymph % (Auto) 12.3 L (25-40) % [place] % (Auto) 6.5 (3-14) % Eos % (Auto) 8.4 H (2-4) % Baso % (Auto) 0.9 (0-2) % Neut # (Auto) 6900 (5152-2791) /uL Lymph # (Auto) 1200 (9808-2484) /uL [place] # (Auto) 600 (0-900) /uL Eos # (Auto) 800 H (0-450) /uL Baso # (Auto) 100 (0-100) /uL Sodium 134 L (137-145) mmol/L Potassium 4.2 (3.4-5.1) mmol/L Chloride 103 (98-107) mmol/L Carbon Dioxide 22 (22-32) mmol/L BUN 31 H (9-20) mg/dL Creatinine 0.97 (0.66-1.25) mg/dL Estimated GFR > 60 (>60) mL/min BUN/Creatinine Ratio 32.0 H (6-22) Glucose 135 H (80-110) mg/dL Lactate 2.2 H (0.7-2.1) mmol/L Calcium 9.1 (8.4-10.2) mg/dL Magnesium 2.2 (1.6-2.3) mg/dL Total Bilirubin 0.6 (0.2-1.3) mg/dL AST 27 (17-59) IU/L ALT 43 (<50) IU/L Alkaline Phosphatase 88 (38-126) U/L Total Protein 6.2 L (6.3-8.2) g/dL Albumin 3.7 (3.5-5.0) g/dL Globulin 2.5 (1.7-4.1) g/dL Albumin/Globulin Ratio 1.5 (1.0-2.8) Imaging Data CT scan - abdomen/pelvis: Radiologist's Impression: [address] [address] [address] Scan Report Signed Patient: Usman Gonzalez MR#: [id number] : 1950 Acct:[id number] Age/Sex: 73 / M Date of Service: 05/10/24 Loc: ED Accession Number: [id number] Procedure: CT abdomen pelvis w con Ordering Provider: Wai James D.O. PROCEDURE: CT ABDOMEN PELVIS W CON INDICATIONS: r/o SBO, s/p neobladder TECHNIQUE: After the administration of intravenous contrast, axial sections acquired from the lung bases to the pubic symphysis. Coronal and sagittal reformats were performed. For radiation dose reduction, the following was used: automated exposure control, adjustment of mA and/or kV according to patient size. COMPARISON: [facility], CT, CT CHEST ABD PEL W CON, 03/22/2024, 14:25. FINDINGS: Image quality: Diagnostic. Lower Chest: No significant findings. ABDOMEN: Liver: No solid mass. Gallbladder: No radiopaque gallstones or wall thickening. Biliary ducts: No biliary dilation. Pancreas: No ductal dilation. Spleen: Size is within normal limits. Adrenal Glands: No adrenal nodules. Kidneys and Ureters: No hydronephrosis. 3 millimeter nonobstructing right renal stone. No solid mass. No complex renal cystic lesion which requires follow up. Stomach and Bowel: Mild circumferential wall thickening involving the proximal transverse colon. Scattered colonic diverticuli without evidence of diverticulitis. The appendix is normal. Peritoneum: Trace low-density free fluid in the lower pelvis. Scattered free intraperitoneal air. Left lower quadrant percutaneous drain with tip positioned in the right pelvis. Ventral Wall: No significant ventral hernia. Scattered subcutaneous air in the abdominal and pelvic wall. Abdominal Nodes: No retroperitoneal or mesenteric adenopathy by size criteria. Vessels: Aorta and inferior vena cava are normal in size. PELVIS: Pelvic Organs: Unremarkable. Bladder: Zabala catheter in the bladder. Bladder has irregular margins and atypical morphology consistent with neobladder. Pelvic Nodes: No enlarged lymph nodes. Miscellaneous: No inguinal hernias are seen. Bones: No aggressive osseous abnormality. Spine degenerative disc disease and facet arthropathy. IMPRESSION: No small bowel obstruction. Mild circumferential wall thickening involving the proximal transverse colon which could represent mild, short segment, nonspecific colitis versus underdistention. Colonic diverticulosis without evidence of diverticulitis. Postsurgical changes consistent with recent neobladder formation. Scattered pneumoperitoneum and subcutaneous emphysema likely related to recent surgery. MDM Narrative Medical decision making narrative: Patient is a 73-year-old male status post neobladder procedure for bladder cancer at [facility] on 05/02/2024 who presents for decreased bowel movements and diffuse abdominal pain/distention for the past 3 days, was instructed by his surgeon to come into the emergency department to rule out bowel obstruction, has been able to tolerate p.o. liquids and solids but has had decreased appetite. He has had flatulence prior to arrival. Patient without any leukocytosis, lab work otherwise unremarkable, CT scan without any small- bowel obstruction nonspecific colitis as well as normal postop findings consistent with recent neobladder placement. Patient well-appearing nontoxic informed to follow up with his surgeon and primary care in outpatient setting, he will be safe for discharge home with outpatient follow up Discharge Plan Departure Patient Disposition: Home Clinical Impression: Abdominal pain Activity Restrictions/Additional Instructions: Please follow-up with your surgeon and primary care Please read the discharge instructions sheet carefully and bring all papers to all doctor follow-up visits, as it may contain information that your doctor may want to see. Disease processes change and evolve, if your symptoms worsen or if you develop any new symptoms that are concerning to you please return for evaluation. Your evaluation today does not show any evidence of any life- threatening/serious illnesses requiring admission to the hospital or surgery. Please follow-up with your doctor for re-evaluation in approximately 1 day. Seek immediate medical attention for any worrisome symptoms. Referrals: Tosha Vides ARNP [Primary Care Provider] - Stand Alone Forms: Patient Portal/API
[2024-05-10 10:24] VITALS: BP 160/87; PULSE 79; RESP 16; TEMP 36.9; O2SAT 98; BMI 24.0
[2024-05-10 10:41] LABS: Add Manual Diff / Slide Review NO; Basophils Absolute Auto 100 /uL (0-100); Basophils Percent Auto 0.9 % (0-2); Eosinophils Absolute Auto 800 /uL (0-450); Eosinophils Percent Auto 8.4 % (2-4); Hematocrit 30.3 % (41-53); Hemoglobin 10.3 g/dL (13.5-17.5); Lymphocytes Absolute Auto 1200 /uL (1100-4500); Lymphocytes Percent Auto 12.3 % (25-40); Mean Corpuscular HGB Conc 34.2 % (30-36); Mean Corpuscular Hemoglobin 33.6 PG (26-34); Mean Corpuscular Volume 98.2 fL (80-100); Monocytes Absolute Auto 600 /uL (0-900); Monocytes Percent Auto 6.5 % (3-14); Neutrophils Absolute Auto 6900 /uL (1500-7000); Neutrophils Percent Auto 71.9 % (50-75); Platelet Count 369 X10^3/uL (150-400); Red Blood Cell Count 3.08 X10^6/uL (4.5-5.9); Red Cell Distribution Width 14.8 % (11.6-14.8); White Blood Cell Count 9.6 X10^3/uL (4.5-11.0)
[2024-05-10 10:54] LABS: Lactate (Lactic Acid) 2.2 mmol/L (0.7-2.1)
[2024-05-10 10:55] LABS: Alanine Aminotransferase 43 IU/L (<50); Albumin 3.7 g/dL (3.5-5.0); Albumin Globulin Ratio 1.5 (1.0-2.8); Alkaline Phosphatase 88 U/L (38-126); Aspartate Aminotransferase 27 IU/L (17-59); Bilirubin Total 0.6 mg/dL (0.2-1.3); Blood Urea Nitrogen 31 mg/dL (9-20); Calcium 9.1 mg/dL (8.4-10.2); Carbon Dioxide 22 mmol/L (22-32); Chloride 103 mmol/L (98-107); Estimated Glomerular Filt Rate > 60 mL/min (>60); Globulin 2.5 g/dL (1.7-4.1); Glucose 135 mg/dL (80-110); HEMOLYSIS 30 (0-50); Magnesium 2.2 mg/dL (1.6-2.3); Potassium 4.2 mmol/L (3.4-5.1); Sodium 134 mmol/L (137-145); Total Protein 6.2 g/dL (6.3-8.2)
[2024-05-10] MEDS: ONDANSETRON 4 MG/2 ML INJ IV (10:57)
[2024-05-10] MEDS: SODIUM CHLORIDE 0.9% 1,000 ML 1000 ML IV (11:42)
--- NOTE | 2024-05-10 12:00 | DI.CT.S_ITS ---
PROCEDURE: CT ABDOMEN PELVIS W CON INDICATIONS: r/o SBO, s/p neobladder TECHNIQUE: After the administration of intravenous contrast, axial sections acquired from the lung bases to the pubic symphysis. Coronal and sagittal reformats were performed. For radiation dose reduction, the following was used: automated exposure control, adjustment of mA and/or kV according to patient size. COMPARISON: [facility], CT, CT CHEST ABD PEL W CON, 03/22/2024, 14:25. FINDINGS: Image quality: Diagnostic. Lower Chest: No significant findings. ABDOMEN: Liver: No solid mass. Gallbladder: No radiopaque gallstones or wall thickening. Biliary ducts: No biliary dilation. Pancreas: No ductal dilation. Spleen: Size is within normal limits. Adrenal Glands: No adrenal nodules. Kidneys and Ureters: No hydronephrosis. 3 millimeter nonobstructing right renal stone. No solid mass. No complex renal cystic lesion which requires follow up. Stomach and Bowel: Mild circumferential wall thickening involving the proximal transverse colon. Scattered colonic diverticuli without evidence of diverticulitis. The appendix is normal. Peritoneum: Trace low-density free fluid in the lower pelvis. Scattered free intraperitoneal air. Left lower quadrant percutaneous drain with tip positioned in the right pelvis. Ventral Wall: No significant ventral hernia. Scattered subcutaneous air in the abdominal and pelvic wall. Abdominal Nodes: No retroperitoneal or mesenteric adenopathy by size criteria. Vessels: Aorta and inferior vena cava are normal in size. PELVIS: Pelvic Organs: Unremarkable. Bladder: Zabala catheter in the bladder. Bladder has irregular margins and atypical morphology consistent with neobladder. Pelvic Nodes: No enlarged lymph nodes. Miscellaneous: No inguinal hernias are seen. Bones: No aggressive osseous abnormality. Spine degenerative disc disease and facet arthropathy. IMPRESSION: No small bowel obstruction. Mild circumferential wall thickening involving the proximal transverse colon which could represent mild, short segment, nonspecific colitis versus underdistention. Colonic diverticulosis without evidence of diverticulitis. Postsurgical changes consistent with recent neobladder formation. Scattered pneumoperitoneum and subcutaneous emphysema likely related to recent surgery. Dictated by: Radha Gomez MD, PhD on 05/10/2024 at 11:59 Approved by: Radha Gomez MD, PhD on 05/10/2024 at 12:07
[2024-05-10 12:12] LABS: Reflexed Lactate in 2 Hours Y
[2024-05-10 12:39] VITALS: BP 141/75; PULSE 76; RESP 17; O2SAT 99
== END 2024-05-10 12:40 | disposition home or self-care (01) ==
PROVIDERS: Emergency Provider Student in an Organized Health Care Education/Training Program; PCP Nurse Practitioner Family
DX: R10.9 Unspecified abdominal pain (principal); R14.0 Abdominal distension (gaseous); R11.0 Nausea; Z98.890 Other specified postprocedural states
CPT/HCPCS: 74177; 80053; 83605; 83735; 85025; 96361; 96374; 99283; 99284; J2405; Q9967

== ENCOUNTER 2024-05-22 08:13 | Emergency (ER) | payer MEDICARE, BC, SELFPAY ==
[2024-05-22 08:18] VITALS: BP 130/60; PULSE 79; RESP 18; TEMP 36.3; O2SAT 100; BMI 22.9
--- NOTE | 2024-05-22 10:11 | ED.MALEGU ---
HPI - Male Genitourinary General Chief complaint: Urogenital-Male Stated complaint: adrian bladder bleeding now Time Seen by Provider: 05/22/24 09:51 Source: patient Mode of arrival: Ambulatory History of Present Illness HPI Narrative: Patient is a 74-year-old male history of bladder cancer recently underwent adrian bladder at [facility] about 3 weeks ago. He has also undergone chemotherapy he has had 2 upper extremity DVTs failed Eliquis in his now on Lovenox. He would follow up with Urology last week Zabala catheter was removed but there was some difficulty with that. He does self cath regularly at home to make sure bladder is completely empty. He also goes to the bathroom regularly every 2 hours scheduled. He started noticing some blood last night and this morning. He reports that he is continuously leaking small amounts of blood. He has no abdominal pain dizziness or lightheadedness. He was seen here May 10 for some constipation issues postoperatively. He denies fever or chills. Related Data Allergies Allergy/AdvReac Type Severity Reaction Status Date / Time No Known Drug Allergies Allergy Verified 05/22/24 08:22 Patient History Social History Smoking Status: Never smoker Smoking Status: Never smoker Substance Use Type: does not use Exam Initial Vital Signs Initial Vital Signs: Vital Signs Temperature 97.4 F L 05/22/24 08:18 Pulse Rate 79 05/22/24 08:18 Respiratory Rate 18 05/22/24 08:18 Blood Pressure 130/60 05/22/24 08:18 Pulse Oximetry 100 05/22/24 08:18 Oxygen Delivery Method Room Air 05/22/24 08:18 GENERAL: Alert 74-year-old female appears chronically ill and in no acute distress. HEENT: Head atraumatic,EOMI, pupils reactive, face symmetric, moist mucous membranes CARDIOVASCULAR: Regular rate and rhythm without murmurs, rubs or gallops. RESPIRATORY: Breath sounds equal bilaterally, no wheezes rales or rhonchi. ABDOMEN: Soft, nontender. Normoactive bowel sounds all 4 quadrants. No guarding or rebound. Incision sites are healing EXTREMITIES: Normal range of motion, no clubbing or edema. Neurovascularly intact NEUROLOGICAL: Alert and oriented x4.Normal gait and speech. Cranial nerves II through XII grossly intact. SKIN: Warm, dry, no laceration, no petechiae, no rashes or lesions. Course Orders Ordered: ED Orders 05/22/24 09:58 Urine Microscopic Stat 05/22/24 10:00 UA Complete [Urinalysis and Microscopic] Stat Urine Culture Stat 05/22/24 10:41 CBC Auto Diff [Complete Blood Count AUTO DIFF] Stat CMP [Comprehensive Metabolic Panel] Stat Vital Signs Vital signs: Vital Signs - 8 hr 05/22/24 13:52 Temperature 98.3 F Pulse Rate 97 H Respiratory Rate 16 Blood Pressure 146/72 H Pulse Oximetry 99 Oxygen Delivery Method Room Air MDM - Male Genitourinary Lab Data 05/22/24 10:41 05/22/24 10:41 Labs: Lab Results 05/22/24 05/22/24 05/22/24 Range/Units 09:58 10:00 10:41 WBC 8.6 (4.5-11.0) X10^3/uL RBC 3.09 L (4.5-5.9) X10^6/uL Hgb 9.9 L (13.5-17.5) g/dL Hct 29.7 L (41-53) % MCV 96.1 (80-100) fL MCH 31.9 (26-34) PG MCHC 33.2 (30-36) % RDW 15.4 H (11.6-14.8) % Plt Count 272 (150-400) X10^3/uL Neut % (Auto) 76.5 H (50-75) % Lymph % (Auto) 11.3 L (25-40) % [place] % (Auto) 8.3 (3-14) % Eos % (Auto) 3.2 (2-4) % Baso % (Auto) 0.7 (0-2) % Neut # (Auto) 6600 (5912-9036) /uL Lymph # (Auto) 1000 L (5060-7263) /uL [place] # (Auto) 700 (0-900) /uL Eos # (Auto) 300 (0-450) /uL Baso # (Auto) 100 (0-100) /uL Sodium 137 (137-145) mmol/L Potassium 4.2 (3.4-5.1) mmol/L Chloride 108 H (98-107) mmol/L Carbon Dioxide 24 (22-32) mmol/L BUN 28 H (9-20) mg/dL Creatinine 0.93 (0.66-1.25) mg/dL Estimated GFR > 60 (>60) mL/min BUN/Creatinine Ratio 30.1 H (6-22) Glucose 103 (80-110) mg/dL Calcium 9.1 (8.4-10.2) mg/dL Total Bilirubin 0.4 (0.2-1.3) mg/dL AST 21 (17-59) IU/L ALT 19 (<50) IU/L Alkaline Phosphatase 75 (38-126) U/L Total Protein 6.0 L (6.3-8.2) g/dL Albumin 3.4 L (3.5-5.0) g/dL Globulin 2.6 (1.7-4.1) g/dL Albumin/Globulin Ratio 1.3 (1.0-2.8) Urine Color Red Urine Appearance Cloudy Urine pH 7.5 (4.5-8.0) Ur Specific [place] 1.010 (1.000-1.035) Urine Protein 1+ H (Negative) Urine Glucose (UA) Negative (Negative) g/dL Urine Ketones Negative (NEGATIVE) Urine Occult Blood 3+ H (Negative) Urine Nitrate Negative (Negative) Urine Bilirubin Negative (NEGATIVE) Urine Urobilinogen 0.2 (0.2) E.U./dL Ur Leukocyte Esterase 2+ H (NEGATIVE) Urine RBC 0-1/hpf D >100/hpf H D (0-5/HPF) Urine WBC 0-1/hpf 5-10/hpf H (0-5/HPF) Ur Squamous Epith Cells None seen None seen (0-5/HPF) Amorphous Sediment 1+ Urine Bacteria None seen Moderate (10-30) H (None) Ur Culture Indicated? Cult not indicated Specimen cultured Vol Urine Centrifuged 10ml (spun) 10ml (spun) Urine Dip Bedside Urine Glucose Negative Bedside Urine Bilirubin - Negative Bedside Urine Ketone - Negative Urine Specific [place] 1.010 Bedside Urine Occult Blood +++ Bedside Urine pH 7.0 Bedside Urine Protein +/- 15 Bedside Urine Urobilinogen - Negative Bedside Urine Nitrite - Negative Bedside Urine Leukocytes +++ 500 Esterase MDM Narrative Medical decision making narrative: Patient 74-year-old male who presents today with hematuria, postop about 2 weeks after neobladder. No abdominal pain fever or chills. He previously had a Zabala catheter that was removed last week he has not had any hematuria since. He does self catheterization 2 help with urine retention. 12:30 Dr. Chan [facility] urologist updated patient's symptoms test results states need to look directly at urine to see if it is serosanguineous. Recommend postvoid residual make sure he has not retaining. Patient urinated your in his not grossly bloody some pink tinged. Postvoid residual was 400. He did self catheterization and got it all out. Dr. Chan reconsulted recommend self cathing every time he voids until postvoid residual is less than 150. He will make note in the chart. Patient will talk to his surgeon tomorrow and he has an appointment with them coming up. At this time no concern for infection abdomen is soft nontender incision sites are healing. He has no leukocytosis or fever no need for imaging or further evaluation. Discharge Plan Departure Patient Disposition: Home Clinical Impression: Hematuria Instructions: DI for Hematuria Activity Restrictions/Additional Instructions: *You have been diagnosed with hematuria *What to do: At this time I would message your team about how often they want you to self-catheterize. It appears that you are having about 400 after you urinate. Please monitor for gross blood and large blood clot, also inability to urinate *Continue to take medications as directed *Follow up with your primary care provider in 2-3 days or call [phone] *Return to ER if you should have fever chills abdominal pain inability to urinate or any new, worsening or concerning symptoms Referrals: Tosha Vides ARNP [Primary Care Provider] - Stand Alone Forms: Patient Portal/API/Survey
[2024-05-22 10:17] LABS: Appearance Urine UA CLOUDY; Bilirubin Urine UA NEGATIVE (NEGATIVE); Color Urine UA RED; Glucose Urine UA NEGATIVE (Negative); Ketones Urine UA NEGATIVE (NEGATIVE); Leukocyte Esterase Urine UA 2+ (NEGATIVE); Nitrite Urine UA NEGATIVE (Negative); Occult Blood Urine UA 3+ (Negative); Protein Urine UA 1+ (Negative); Urobilinogen Urine UA 0.2 E.U./dL (0.2); pH Urine UA 7.5 (4.5-8.0)
[2024-05-22 10:27] LABS: Bacteria Urine Moderate (10-30); RBC Urine >100/HPF (0-5/HPF); Squamous Epithelial Cell Urine None Seen (0-5/HPF); Urine Volume 10mL (spun); WBC Urine 5-10/HPF (0-5/HPF)
[2024-05-22 10:28] LABS: Culture Indicated Urine Specimen Cultured
[2024-05-22 10:29] LABS: Amorphous Sediment Urine 1+; Bacteria Urine None Seen; Culture Indicated Urine Cult Not Indicated; RBC Urine 0-1/HPF (0-5/HPF); Squamous Epithelial Cell Urine None Seen (0-5/HPF); Urine Volume 10mL (spun); WBC Urine 0-1/HPF (0-5/HPF)
[2024-05-22 10:50] LABS: Add Manual Diff / Slide Review NO; Basophils Absolute Auto 100 /uL (0-100); Basophils Percent Auto 0.7 % (0-2); Eosinophils Absolute Auto 300 /uL (0-450); Eosinophils Percent Auto 3.2 % (2-4); Hematocrit 29.7 % (41-53); Hemoglobin 9.9 g/dL (13.5-17.5); Lymphocytes Absolute Auto 1000 /uL (1100-4500); Lymphocytes Percent Auto 11.3 % (25-40); Mean Corpuscular HGB Conc 33.2 % (30-36); Mean Corpuscular Hemoglobin 31.9 PG (26-34); Mean Corpuscular Volume 96.1 fL (80-100); Monocytes Absolute Auto 700 /uL (0-900); Monocytes Percent Auto 8.3 % (3-14); Neutrophils Absolute Auto 6600 /uL (1500-7000); Neutrophils Percent Auto 76.5 % (50-75); Platelet Count 272 X10^3/uL (150-400); Red Blood Cell Count 3.09 X10^6/uL (4.5-5.9); Red Cell Distribution Width 15.4 % (11.6-14.8); White Blood Cell Count 8.6 X10^3/uL (4.5-11.0)
[2024-05-22 10:58] LABS: Alanine Aminotransferase 19 IU/L (<50); Albumin 3.4 g/dL (3.5-5.0); Albumin Globulin Ratio 1.3 (1.0-2.8); Alkaline Phosphatase 75 U/L (38-126); Aspartate Aminotransferase 21 IU/L (17-59); BUN Creatinine Ratio 30.1 (6-22); Bilirubin Total 0.4 mg/dL (0.2-1.3); Blood Urea Nitrogen 28 mg/dL (9-20); Calcium 9.1 mg/dL (8.4-10.2); Carbon Dioxide 24 mmol/L (22-32); Chloride 108 mmol/L (98-107); Estimated Glomerular Filt Rate > 60 mL/min (>60); Globulin 2.6 g/dL (1.7-4.1); Glucose 103 mg/dL (80-110); HEMOLYSIS < 15 (0-50); Potassium 4.2 mmol/L (3.4-5.1); Sodium 137 mmol/L (137-145)
--- NOTE | 2024-05-22 12:19 | PC.NURSE ---
Blood in urine starting this morning. Recently seen at urology who told him his neobladder was working well. Pt denies fevers. Pt denies pain.
[2024-05-22 13:52] VITALS: BP 146/72; PULSE 97; RESP 16; TEMP 36.8; O2SAT 99
== END 2024-05-22 13:53 | disposition home or self-care (01) ==
PROVIDERS: Emergency Provider Emergency Medicine; PCP Nurse Practitioner Family
DX: R31.9 Hematuria, unspecified (principal); C67.9 Malignant neoplasm of bladder, unspecified
CPT/HCPCS: 51798; 80053; 81001; 81003; 81015; 85025; 87086; 99283

== ENCOUNTER → 2024-06-07 10:57 | Outpatient (CLI) | payer MEDICARE, BC, SELFPAY ==
--- NOTE | 2024-06-07 10:58 | DI.US.S_ITS ---
PROCEDURE: US RENAL COMPLETE INDICATIONS: Bladder cancer, cystectomy, neobladder 05/08/2024 TECHNIQUE: Real-time scanning was performed of the kidneys and bladder, with image documentation. COMPARISON: None. FINDINGS: Kidneys: Kidneys are normal in size. Right kidney measures 10.0 cm long; left kidney measures 11.7 cm long. Right renal cortical thickness is 2.1 cm; left renal cortical thickness is 1.9 cm. Small right renal cortical cysts measure up to 2 cm Moderate to severe right-sided hydronephrosis decreased postvoiding. No left-sided hydronephrosis.. Bladder: New bladder contains mobile debris . Pre-void bladder volume is 246 mL. Post-void residual is 44 mL. Pre-void images demonstrate no intraluminal masses or stones. On pre-void images, neither ureteral jets are noted with color Doppler interrogation. (Of note, ureteral jets may not be detectable in up to 25% of cases due to insufficient differences in specific gravity between ureteral and bladder urine). Miscellaneous: No free pelvic fluid. IMPRESSION: Moderate to severe right-sided hydronephrosis Approved by: Judd Salter M.D. on 06/07/2024 at 18:12
== END ==
PROVIDERS: PCP Nurse Practitioner Family; Referring Provider Urology; Visit Provider Urology
DX: C67.9 Malignant neoplasm of bladder, unspecified (principal); N13.30 Unspecified hydronephrosis; N28.1 Cyst of kidney, acquired
CPT/HCPCS: 76770

== ENCOUNTER 2024-06-08 07:18 | Emergency (ER) | payer MEDICARE, BC, SELFPAY ==
[2024-06-08] VITALS (8 sets, daily range): BP systolic 117–149; BP diastolic 61–79; PULSE 70–82; RESP 18; TEMP 36.6; O2SAT 99–100; BMI 22.4
--- NOTE | 2024-06-08 07:38 | ED.EXTPRO ---
HPI - Extremity Problem General Chief complaint: Extremity Problem,Nontraumatic Stated complaint: poss blood clot r leg Time Seen by Provider: 06/08/24 07:29 History of Present Illness HPI Narrative: Patient here for right leg/calf discomfort. Noticed this this morning. No known injury. No excessive stress on the leg or exercise. No chest pain or shortness of breath. Patient has history of bilateral upper extremity DVT and he was on Lovenox. He states his providers thought it was due to the chemotherapy he was on. Followed by his oncologist. They were discontinued 2 weeks ago. Related Data Previous Rx's Medication Instructions Recorded apixaban 5 mg tablet See Rx Instructions .Route 06/08/24 .COMPLEX #74 tabs Allergies Allergy/AdvReac Type Severity Reaction Status Date / Time No Known Drug Allergies Allergy Verified 05/22/24 08:22 Review of Systems Review of Systems Narrative: GENERAL: Negative chills, fatigue, malaise, fever, sweats. HEENT: Negative sinus pain, ear pain, sore throat RESPIRATORY: Negative dyspnea, cough CARDIOVASCULAR: Negative chest pain, palpitations GASTROINTESTINAL: Negative nausea, vomiting, abdominal pain : Negative dysuria, frequency, hematuria MUSCULOSKELETAL: Positive muscle or bony pain SKIN: Negative rash, skin lesions NEUROLOGIC: Negative weakness, numbness ROS Unobtainable: All systems reviewed & are unremarkable except as noted in HPI and below Patient History Social History Smoking Status: Never smoker Smoking Status: Never smoker Substance Use Type: does not use Exam Narrative Exam Narrative: GENERAL: in no distress, not toxic not dyspneic HEAD: Normocephalic. EYES: Pupils equal round ENT: Mucous membranes moist. NECK: Trachea midline. CARDIOVASCULAR: Regular rate and rhythm RESPIRATORY: Clear to auscultation. Breath sounds equal bilaterally. No wheezes, rales, or rhonchi. EXTREMITIES: No gross deformities. Bilateral legs exposed. Right calf grossly symmetric to the left calf. Right foot warm soft pink strong pedal pulse brisk cap refills negative Rashad test negative Burris test. No palpable cords. No erythema no induration NEURO: AOx4. Clear speech SKIN: Warm and dry PSYCH: Not anxious, is cooperative Initial Vital Signs Initial Vital Signs: Vital Signs Pulse Rate 82 06/08/24 07:25 Blood Pressure 149/79 H 06/08/24 07:25 Pulse Oximetry 99 06/08/24 07:25 Course Orders Ordered: Discontinued Medications Apixaban (Apixaban 5 Mg Tablet) 10 mg PO NOW ONE Stop: 06/08/24 09:42 Last Admin: 06/08/24 09:57 Dose: 10 mg Documented By: MARILYN Vital Signs Vital signs: Vital Signs - 8 hr 06/08/24 07:36 Temperature 97.9 F Pulse Rate 80 Respiratory Rate 18 Blood Pressure 131/74 Pulse Oximetry 100 Oxygen Delivery Method Room Air MDM - Extremity (Nontraumatic) Lab Data 06/08/24 08:43 06/08/24 08:43 Labs: Lab Results 06/08/24 Range/Units 08:43 WBC 6.1 (4.5-11.0) X10^3/uL RBC 3.28 L (4.5-5.9) X10^6/uL Hgb 10.1 L (13.5-17.5) g/dL Hct 30.5 L (41-53) % MCV 92.8 (80-100) fL MCH 30.7 (26-34) PG MCHC 33.1 (30-36) % RDW 15.7 H (11.6-14.8) % Plt Count 193 (150-400) X10^3/uL Neut % (Auto) 70.9 (50-75) % Lymph % (Auto) 13.9 L (25-40) % [place] % (Auto) 10.0 (3-14) % Eos % (Auto) 4.3 H (2-4) % Baso % (Auto) 0.9 (0-2) % Neut # (Auto) 4300 (2879-1242) /uL Lymph # (Auto) 800 L (6623-6218) /uL [place] # (Auto) 600 (0-900) /uL Eos # (Auto) 300 (0-450) /uL Baso # (Auto) 100 (0-100) /uL PT 12.8 H (9.4-12.5) SECONDS INR 1.1 (0.9-1.3) APTT 27 (25.1-36.5) SECONDS Sodium 140 (137-145) mmol/L Potassium 4.1 (3.4-5.1) mmol/L Chloride 109 H (98-107) mmol/L Carbon Dioxide 25 (22-32) mmol/L BUN 30 H (9-20) mg/dL Creatinine 1.08 (0.66-1.25) mg/dL Estimated GFR > 60 (>60) mL/min BUN/Creatinine Ratio 27.8 H (6-22) Glucose 120 H (80-110) mg/dL Calcium 9.4 (8.4-10.2) mg/dL Total Bilirubin 0.4 (0.2-1.3) mg/dL AST 24 (17-59) IU/L ALT 22 (<50) IU/L Alkaline Phosphatase 75 (38-126) U/L Total Protein 6.4 (6.3-8.2) g/dL Albumin 3.7 (3.5-5.0) g/dL Globulin 2.7 (1.7-4.1) g/dL Albumin/Globulin Ratio 1.4 (1.0-2.8) Imaging Data US - DVT: Radiologist's Impression: [place] [address] Ultrasound Report Signed Patient: Usman Gonzalez MR#: [id number] : 1950 Acct:[id number] Age/Sex: 74 / M Date of Service: 06/08/24 Loc: ED Accession Number: [id number] Procedure: US periph venous low extrem rt Ordering Provider: Ben Moura MD PROCEDURE: US PERIPH VENOUS LOW EXTREM RT INDICATIONS: SWELLING TECHNIQUE: Real-time imaging, as well as color and pulse Doppler interrogation, were performed of the lower extremity deep veins from the inguinal ligament to the popliteal fossa, with documentation of the visualized calf veins. COMPARISON: None. FINDINGS: Partially occlusive thrombosis of the popliteal vein. Peroneal veins are occluded. The common femoral and femoral are normally compressible, and free of intraluminal thrombus. IMPRESSION: Deep venous thrombosis involving the popliteal vein and peroneal veins. Findings communicated to the ordering provider by the industrial technologist. Dictated by: Osiel Sanchez M.D. on 06/08/2024 at 9:02 Approved by: Osiel Sanchez M.D. on 06/08/2024 at 9:04 [facility] Narrative Medical decision making narrative: Patient here for right leg/calf discomfort. Noticed this this morning. No known injury. No excessive stress on the leg or exercise. No chest pain or shortness of breath. Patient has history of bilateral upper extremity DVT and he was on Lovenox. He states his providers thought it was due to the chemotherapy he was on. Followed by his oncologist. They were discontinued 2 weeks ago. After history and exam exam is reassuring. At this time ultrasound leg ordered. [facility] Medical records reviewed: No recent visit for this complaint Differential considered: Includes but not limited to DVT SVT muscle strain compartment syndrome Lab Test results independently reviewed as above. Pertinent findings: WBC 6.1 hemoglobin 10.1 INR 1.1 BUN 30 creatinine 1.08 GFR greater than 60 Imaging studies independently reviewed: Ultrasound right leg positive DVT popliteal vein and peroneal vein Consultations: 9:[address] Jackson, hospitalist, recommends discharge home. Eliquis 10 mg twice a day for 7 days then continue 5 mg twice a day, 30 day supply until seen by his provider Treatments: Eliquis Re-evaluations: 8:00 a.m.. Updated patient awaiting final results of ultrasound. Blood work will be ordered as preliminary ultrasound does show DVTs Discussion: Appropriate for discharge home exam is reassuring laboratory studies reassuring. No chest complaints. Return precautions reviewed with patient. He does have provider to follow up with. Eliquis started here. Vital signs are reassuring. No other images indicate Diagnosis: Acute leg DVT Discharge Plan Departure Patient Disposition: Home Clinical Impression: Deep vein thrombosis of lower extremity Qualifiers: Affected thrombotic vein of extremity: unspecified vein of extremity Chronicity: acute Laterality: right Qualified Code(s): I82.401 - Acute embolism and thrombosis of unspecified deep veins of right lower extremity Instructions: DI for Deep Vein Thrombosis Activity Restrictions/Additional Instructions: You are being treated for blood clots in your leg. Prescription has been provided for you. Please see your oncologist for continued therapy/medications for blood thinner, Eliquis. Return if worse if any questions or concerns. Prescriptions: New apixaban 5 mg tablet See Rx Instructions .ROUTE .COMPLEX Qty: 74 0RF Rx Instructions: Take 10 mg by mouth twice a day for 7 days, then 5 mg by mouth twice a day for 23 days Referrals: Tosha Vides ARNP [Primary Care Provider] - Stand Alone Forms: Patient Portal/API/Survey
[2024-06-08 08:58] LABS: Add Manual Diff / Slide Review NO; Basophils Absolute Auto 100 /uL (0-100); Basophils Percent Auto 0.9 % (0-2); Eosinophils Absolute Auto 300 /uL (0-450); Eosinophils Percent Auto 4.3 % (2-4); Hematocrit 30.5 % (41-53); Hemoglobin 10.1 g/dL (13.5-17.5); Lymphocytes Absolute Auto 800 /uL (1100-4500); Lymphocytes Percent Auto 13.9 % (25-40); Mean Corpuscular HGB Conc 33.1 % (30-36); Mean Corpuscular Hemoglobin 30.7 PG (26-34); Mean Corpuscular Volume 92.8 fL (80-100); Monocytes Absolute Auto 600 /uL (0-900); Neutrophils Absolute Auto 4300 /uL (1500-7000); Neutrophils Percent Auto 70.9 % (50-75); Platelet Count 193 X10^3/uL (150-400); Red Blood Cell Count 3.28 X10^6/uL (4.5-5.9); Red Cell Distribution Width 15.7 % (11.6-14.8); White Blood Cell Count 6.1 X10^3/uL (4.5-11.0)
[2024-06-08 09:08] LABS: INR 1.1 (0.9-1.3); Prothrombin Time 12.8 SECONDS (9.4-12.5)
[2024-06-08 09:10] LABS: PTT Partial Thromboplastin Tim 27 SECONDS (25.1-36.5)
[2024-06-08 09:14] LABS: Alanine Aminotransferase 22 IU/L (<50); Albumin 3.7 g/dL (3.5-5.0); Albumin Globulin Ratio 1.4 (1.0-2.8); Alkaline Phosphatase 75 U/L (38-126); Aspartate Aminotransferase 24 IU/L (17-59); BUN Creatinine Ratio 27.8 (6-22); Bilirubin Total 0.4 mg/dL (0.2-1.3); Blood Urea Nitrogen 30 mg/dL (9-20); Calcium 9.4 mg/dL (8.4-10.2); Carbon Dioxide 25 mmol/L (22-32); Chloride 109 mmol/L (98-107); Estimated Glomerular Filt Rate > 60 mL/min (>60); Globulin 2.7 g/dL (1.7-4.1); Glucose 120 mg/dL (80-110); HEMOLYSIS < 15 (0-50); Potassium 4.1 mmol/L (3.4-5.1); Sodium 140 mmol/L (137-145); Total Protein 6.4 g/dL (6.3-8.2)
[2024-06-08] MEDS: APIXABAN 5 MG TABLET 10 MG PO (09:57)
== END 2024-06-08 10:09 | disposition home or self-care (01) ==
PROVIDERS: Emergency Provider Emergency Medicine; PCP Nurse Practitioner Family
DX: I82.401 Acute embolism and thrombosis of unspecified deep veins of right lower extremity (principal)
CPT/HCPCS: 80053; 85025; 85610; 85730; 93971; 99283; 99284

== ENCOUNTER → 2024-07-01 08:46 | Outpatient (CLI) | payer MEDICARE, BC, SELFPAY ==
--- NOTE | 2024-07-01 08:52 | DI.US.S_ITS ---
PROCEDURE: US PERIPH VENOUS LOW EXTREM BI INDICATIONS: postprocedural state TECHNIQUE: Real-time imaging, as well as color and pulse Doppler interrogation, were performed of the deep veins of both legs from the inguinal ligament to the popliteal fossa, with documentation of the visualized calf veins. COMPARISON: None. FINDINGS: Right: There is a mild amount of thrombus seen within the right peroneal trunk. The right lower extremity is otherwise free of deep venous thrombosis. Left: The common femoral, femoral, popliteal, and the visualized calf veins are normally compressible, and free of intraluminal thrombus. Color and pulse Doppler demonstrate normal phasic intravascular flow. There is normal augmentation response to distal compression maneuver. IMPRESSION: A small amount of deep venous thrombosis can be seen involving the right peroneal trunk. The left lower extremity is free of deep venous thrombosis. Dictated by: Irwin Fitzpatrick M.D. on 07/01/2024 at 11:35 Approved by: Irwin Fitzpatrick M.D. on 07/01/2024 at 11:36
== END ==
PROVIDERS: PCP Nurse Practitioner Family; Referring Provider Student in an Organized Health Care Education/Training Program; Visit Provider Student in an Organized Health Care Education/Training Program
DX: I82.451 Acute embolism and thrombosis of right peroneal vein (principal); Z98.890 Other specified postprocedural states
CPT/HCPCS: 93970

== ENCOUNTER → 2024-07-01 14:01 | Outpatient (CLI) | payer MEDICARE, BC, SELFPAY ==
--- NOTE | 2024-07-01 14:05 | DI.CT.S_ITS ---
PROCEDURE: CT CHEST ABD PEL W CON INDICATIONS: Malignant neoplasm of bladder, unspecified TECHNIQUE: After the administration of intravenous contrast, 5 mm thick sections acquired from the lung apices to the symphysis. 5 mm coronal and sagittal reformats were performed, with additional 7 mm MIP reformats through the lungs. For radiation dose reduction, the following was used: automated exposure control, adjustment of mA and/or kV according to patient size. COMPARISON: Merged With [facility], CT, CT CHEST ABD PEL W CON, 03/22/2024, 14:25. FINDINGS: Image quality: Diagnostic Lungs and pleura: No dense airspace disease. Scattered scarring and atelectasis. A more nodular area at the right costophrenic angle is present, possibly focal atelectasis (/206), attention on follow-up. No overtly suspicious pulmonary nodules. No pleural effusions. Unchanged calcifications and pleural thickening at the superior portion of the right lower lobe. Mediastinum, heart, and esophagus: Normal heart size. No pathologic lymph nodes by size criteria. Esophagus appears unremarkable. Chest wall and thyroid: Unremarkable Liver: Unremarkable Gallbladder and biliary system: Unremarkable, nondilated. Duodenal diverticulum is seen adjacent to the ampulla Pancreas: No ductal dilation Spleen: Nonenlarged Adrenals: The mild left-sided thickening Kidneys: Scattered renal cysts. Increased right hydronephrosis. Slightly delayed right renal enhancement. Possible mild thickening of of the right distal ureter adjacent to the surgical changes (coronal image 32). No left hydronephrosis. Vessels and lymph nodes: Main portal vein appears patent. No pathologic lymph nodes by size criteria. No abdominal aortic aneurysm Bowel and peritoneum: No evidence of small bowel obstruction. There are colonic diverticula. No pathologic ascites or drainable abscess Body wall: Postsurgical changes Pelvis: Postsurgical changes of the distal ureters and bladder. Unremarkable appearance of the prostate bed on limited CT evaluation Bones: No acute or suspicious osseous findings. IMPRESSION: Postsurgical changes of the distal ureters and bladder. On the right, there is moderate hydronephrosis and possible soft tissue thickening near the distal ureter at the surgical site. (series 3, image 32) Mildly delayed enhancement of the right kidney suggestive of obstructive uropathy No pathologic lymph nodes by size criteria in the chest, abdomen, or pelvis. No definite distant metastases disease. Other findings above. Dictated by: Usman Caicedo M.D. on 07/01/2024 at 16:37 Approved by: Usman Caicedo M.D. on 07/01/2024 at 16:50
== END ==
PROVIDERS: PCP Nurse Practitioner Family; Referring Provider Physician Assistant; Visit Provider Physician Assistant
DX: C67.9 Malignant neoplasm of bladder, unspecified (principal); I82.451 Acute embolism and thrombosis of right peroneal vein; K57.10 Diverticulosis of small intestine without perforation or abscess without bleeding; N28.1 Cyst of kidney, acquired; N13.30 Unspecified hydronephrosis; K57.90 Diverticulosis of intestine, part unspecified, without perforation or abscess without bleeding
CPT/HCPCS: 71260; 74177; 93970; Q9967

== ENCOUNTER → 2024-08-01 12:06 | Outpatient (CLI) | payer MEDICARE, BC, SELFPAY ==
[2024-08-01 12:32] LABS: Estimated Glomerular Filt Rate > 60 mL/min (>60)
== END ==
PROVIDERS: PCP Nurse Practitioner Family; Referring Provider Radiology Diagnostic Radiology; Visit Provider Radiology Diagnostic Radiology
DX: C67.9 Malignant neoplasm of bladder, unspecified (principal)
CPT/HCPCS: 36415; 82565

== ENCOUNTER → 2024-08-02 12:52 | Outpatient (CLI) | payer MEDICARE, BC, SELFPAY ==
--- NOTE | 2024-08-02 12:55 | DI.CT.S_ITS ---
PROCEDURE: CT ABDOMEN PELVIS W CON INDICATIONS: MALIGNANT NEOPLASM OF BLADDER TECHNIQUE: After the administration of intravenous contrast, axial sections acquired from the lung bases to the pubic symphysis. Coronal and sagittal reformats were performed. For radiation dose reduction, the following was used: automated exposure control, adjustment of mA and/or kV according to patient size. COMPARISON: [facility], CT, CT CHEST ABD PEL W CON, 07/01/2024, 14:37. [facility], CT, CT ABDOMEN PELVIS W CON, 05/10/2024, 11:31. FINDINGS: Image quality: Diagnostic Lower chest: Unremarkable lung bases Small hiatal hernia. Normal heart size. Liver: Unremarkable Gallbladder and biliary system: Unremarkable, nondilated Pancreas: No ductal dilation Spleen: Nonenlarged Adrenals: No discrete nodules. Mild thickening again seen Kidneys: Mildly delayed right nephrogram. Mild right urothelial thickening. There is no definite obstructing soft tissue. The previously identified soft tissue thickening is less conspicuous on today's study in the right distal ureter. Mild left collecting system dilation is present. Mild left distal ureter thickening also again seen. Vessels and lymph nodes: Main portal vein is patent. No abdominal aortic aneurysm. No pathologic lymphadenopathy by size criteria. Bowel and peritoneum: No evidence of small bowel obstruction. There is moderate fecal loading. Bowel suture lines are seen in the central lower abdomen. There is a moderate rectal stool ball. No pathologic ascites. Colonic diverticula are present. Body wall: Postsurgical changes Pelvis: Postsurgical changes of the bladder. Unremarkable appearance of the prostate bed on limited CT evaluation Bones: There are degenerative changes. Sacroiliac ankylosis. IMPRESSION: Right urothelial thickening and hydronephrosis, with decreased conspicuity compared to prior study at the distal ureter. Mild urothelial thickening and hydronephrosis also seen in the left kidney. Delayed right nephrogram indicates persistent obstructive uropathy. Attention on follow-up suggested. Postsurgical changes of distal ureters and neobladder formation. No lymphadenopathy by size criteria. Other findings above Dictated by: Usman Caicedo M.D. on 08/02/2024 at 15:12 Approved by: Usman Caicedo M.D. on 08/02/2024 at 15:19
== END ==
LOC: CT 12:54
PROVIDERS: PCP Nurse Practitioner Family; Referring Provider Internal Medicine Hematology & Oncology; Visit Provider Internal Medicine Hematology & Oncology
DX: C67.9 Malignant neoplasm of bladder, unspecified (principal); N13.30 Unspecified hydronephrosis; K57.90 Diverticulosis of intestine, part unspecified, without perforation or abscess without bleeding
CPT/HCPCS: 74177; Q9967

== ENCOUNTER → 2024-09-26 13:56 | Outpatient (CLI) | payer MEDICARE, BC, SELFPAY ==
--- NOTE | 2024-09-26 14:00 | DI.CT.S_ITS ---
PROCEDURE: CT CHEST ABD PEL W CON INDICATIONS: urothelial cancer TECHNIQUE: After the administration of intravenous contrast, 5 mm thick sections acquired from the lung apices to the symphysis. 5 mm coronal and sagittal reformats were performed, with additional 7 mm MIP reformats through the lungs. For radiation dose reduction, the following was used: automated exposure control, adjustment of mA and/or kV according to patient size. COMPARISON: [facility], CT, CT ABDOMEN PELVIS W CON, 08/02/2024, 13:02. [facility], CT, CT CHEST ABD PEL W CON, 07/01/2024, 14:37. FINDINGS: Image quality: Excellent. CHEST: Lungs and Pleura: Central and peripheral airways are normal without bronchial wall thickening or bronchiectasis. No nodule, mass, ground-glass opacity, or consolidation. Coarse, partially calcified pleural plaque in the superior segment right lower lobe posteriorly. No other pleural plaquing. No pleural effusion. Lower Neck: No enlarged lymph nodes. Thyroid: Normal CT appearance. Axillae: No enlarged lymph nodes. Chest Wall: No suspicious chest wall lesions. Bones: No suspicious bone lesion. Mild degenerative changes in the spine. Thoracic Vessels: The aorta and pulmonary arteries demonstrate normal size. Mediastinum and Chantel: No enlarged lymph nodes. Heart: Heart size is normal. No pericardial effusion. Esophagus: No wall thickening. No hiatal hernia. ABDOMEN: Liver: No solid mass. Gallbladder: No wall thickening or calcified stones. Biliary ducts: No biliary dilation. Pancreas: No ductal dilation. Spleen: Size is within normal limits. Adrenal Glands: No adrenal nodules. Kidneys and Ureters: Decreased right hydronephrosis compared to prior exams. No left hydronephrosis. Symmetric renal enhancement. No nephrolithiasis. No significant hydroureter or suspicious urothelial thickening. Ureteral anastomoses with portions the neobladder appear intact. No adjacent fluid collections. Stomach and Bowel: Stomach and small bowel are normal. Small bowel anastomosis centrally in the abdomen appears intact and stable morphology. Normal appendix. Extensive sigmoid diverticulosis and prominent diverticula throughout the remainder of the colon. Peritoneum: No abnormal intraperitoneal fluid. No free air. Ventral Wall: No significant ventral hernia. Abdominal Nodes: No retroperitoneal or mesenteric adenopathy by size criteria. Vessels: The abdominal aorta, IVC, and portal vein are of normal caliber. PELVIS: Pelvic Organs: Prostatectomy and cystectomy. Bladder: Cystectomy with neobladder. No soft tissue abnormality in the resection bed. Pelvic Nodes: No enlarged lymph nodes. Miscellaneous: No inguinal hernias are seen. Bones: No aggressive osseous abnormality. IMPRESSION: Resolved right hydronephrosis and hydroureter compared to prior exams. Symmetric renal enhancement. No evidence of local recurrence in the pelvis. No new metastatic disease in the chest, abdomen, or pelvis. Dictated by: Julianna Granado M.D. on 09/26/2024 at 21:59 Approved by: Julianna Granado M.D. on 09/26/2024 at 22:17
[2024-09-26 14:28] LABS: Estimated Glomerular Filt Rate > 60 mL/min (>60)
== END ==
PROVIDERS: PCP Nurse Practitioner Family; Referring Provider Internal Medicine Hematology & Oncology; Visit Provider Internal Medicine Hematology & Oncology
DX: C68.9 Malignant neoplasm of urinary organ, unspecified (principal); K57.30 Diverticulosis of large intestine without perforation or abscess without bleeding; Z98.0 Intestinal bypass and anastomosis status
CPT/HCPCS: 36415; 71260; 74177; 82565; Q9967

== ENCOUNTER → 2024-09-27 12:51 | Outpatient (CLI) | payer MEDICARE, BC, SELFPAY ==
[2024-09-27 13:19] LABS: Add Manual Diff / Slide Review NO; Basophils Absolute Auto 100 /uL (0-100); Eosinophils Absolute Auto 400 /uL (0-450); Eosinophils Percent Auto 7.1 % (2-4); Hematocrit 39.6 % (41-53); Hemoglobin 13.1 g/dL (13.5-17.5); Lymphocytes Absolute Auto 1100 /uL (1100-4500); Lymphocytes Percent Auto 21.2 % (25-40); Mean Corpuscular HGB Conc 33.2 % (30-36); Mean Corpuscular Hemoglobin 29.1 PG (26-34); Mean Corpuscular Volume 87.6 fL (80-100); Monocytes Absolute Auto 600 /uL (0-900); Monocytes Percent Auto 11.1 % (3-14); Neutrophils Absolute Auto 3100 /uL (1500-7000); Neutrophils Percent Auto 59.6 % (50-75); Platelet Count 206 X10^3/uL (150-400); Red Blood Cell Count 4.52 X10^6/uL (4.5-5.9); Red Cell Distribution Width 17.9 % (11.6-14.8); White Blood Cell Count 5.2 X10^3/uL (4.5-11.0)
[2024-09-27 13:30] LABS: Alanine Aminotransferase 28 IU/L (<50); Albumin 4.4 g/dL (3.5-5.0); Albumin Globulin Ratio 1.8 (1.0-2.8); Alkaline Phosphatase 63 U/L (38-126); Aspartate Aminotransferase 27 IU/L (17-59); BUN Creatinine Ratio 20.9 (6-22); Bilirubin Total 0.7 mg/dL (0.2-1.3); Blood Urea Nitrogen 24 mg/dL (9-20); Calcium 9.6 mg/dL (8.4-10.2); Carbon Dioxide 27 mmol/L (22-32); Chloride 106 mmol/L (98-107); Estimated Glomerular Filt Rate > 60 mL/min (>60); Globulin 2.5 g/dL (1.7-4.1); Glucose 113 mg/dL (80-110); HEMOLYSIS < 15 (0-50); Sodium 141 mmol/L (137-145); Total Protein 6.9 g/dL (6.3-8.2)
== END ==
PROVIDERS: PCP Nurse Practitioner Family; Referring Provider Internal Medicine Hematology & Oncology; Visit Provider Internal Medicine Hematology & Oncology
DX: C67.4 Malignant neoplasm of posterior wall of bladder (principal)
CPT/HCPCS: 36415; 80053; 85025

== ENCOUNTER → 2024-10-18 09:01 | Outpatient (CLI) | payer MEDICARE, BC, SELFPAY ==
--- NOTE | 2024-10-18 09:03 | DI.CT.S_ITS ---
PROCEDURE: CT CHEST ABD PEL W CON INDICATIONS: malignant neoplasm of urinary bladder TECHNIQUE: After the administration of intravenous contrast, 5 mm thick sections acquired from the lung apices to the symphysis. 5 mm coronal and sagittal reformats were performed, with additional 7 mm MIP reformats through the lungs. For radiation dose reduction, the following was used: automated exposure control, adjustment of mA and/or kV according to patient size. COMPARISON: [facility], CT, CT CHEST ABD PEL W CON, 09/26/2024, 14:43. FINDINGS: Image quality: Excellent. CHEST: Lower Neck: No enlarged lymph nodes. Thyroid: No thyroid nodules which require sonographic follow up, per consensus guidelines. Axillae: No enlarged lymph nodes. Chest Wall: Unremarkable. Lungs and Pleura: No pneumothorax or pleural effusions. Small calcified plaque at the right lower lobe. Pleural apical scarring. Heart: Heart size is normal. No pericardial effusion. Thoracic Vessels: The aorta and pulmonary arteries demonstrate normal size. Mediastinum and Chantel: No enlarged lymph nodes. Esophagus: No wall thickening. No hiatal hernia. ABDOMEN: Liver: No solid mass. Gallbladder: No radiopaque gallstones or wall thickening. Biliary ducts: No biliary dilation. Pancreas: No ductal dilation. Spleen: Size is within normal limits. Splenule. Adrenal Glands: No adrenal nodules. Kidneys and Ureters: No hydronephrosis. No solid mass. No complex renal cystic lesion which requires follow up. Stomach and Bowel: Diverticulosis. No diverticulitis. Normal appendix. Stomach is unremarkable. No small bowel obstruction. Urinary conduit and neobladder. No mass is seen. Peritoneum: No abnormal intraperitoneal fluid. No free air. Ventral Wall: No significant ventral hernia. Abdominal Nodes: No retroperitoneal or mesenteric adenopathy by size criteria. Vessels: Aorta and inferior vena cava are normal in size. PELVIS: Pelvic Organs: Unremarkable. Bladder: No bladder wall thickening, accounting for underdistention. Pelvic Nodes: No enlarged lymph nodes. Miscellaneous: No inguinal hernias are seen. Bones: No aggressive osseous abnormality. IMPRESSION: 1. No metastatic disease identified. No adenopathy. 2. Urinary conduit and neobladder. Dictated by: Gregorio Neil M.D. on 10/18/2024 at 12:43 Approved by: Gregorio Neil M.D. on 10/18/2024 at 12:55
== END ==
PROVIDERS: PCP Nurse Practitioner Family; Referring Provider Student in an Organized Health Care Education/Training Program; Visit Provider Student in an Organized Health Care Education/Training Program
DX: C67.9 Malignant neoplasm of bladder, unspecified (principal); Z93.6 Other artificial openings of urinary tract status
CPT/HCPCS: 71260; 74177; Q9967

== ENCOUNTER → 2025-01-10 09:39 | Outpatient (CLI) | payer MEDICARE, BC, SELFPAY ==
--- NOTE | 2025-01-10 09:41 | DI.CT.S_ITS ---
PROCEDURE: CT CHEST ABD PEL W CON INDICATIONS: hydronephrosis TECHNIQUE: After the administration of intravenous contrast, 5 mm thick sections acquired from the lung apices to the symphysis. 5 mm coronal and sagittal reformats were performed, with additional 7 mm MIP reformats through the lungs. For radiation dose reduction, the following was used: automated exposure control, adjustment of mA and/or kV according to patient size. COMPARISON: [facility], CT, CT CHEST ABD PEL W CON, 10/18/2024, 9:20. FINDINGS: Image quality: Excellent. CHEST: Lower Neck: No enlarged lymph nodes. Thyroid: Normal CT appearance. Axillae: No enlarged lymph nodes. Chest Wall: Unremarkable. Lungs and Pleura: Calcified coarse pleural plaque in the superior segment right lower lobe. No other pleural plaquing, calcification, or pleural effusion. No other suspicious nodules or masses. Central and peripheral airways are normal without bronchial wall thickening or bronchiectasis. Heart: Heart size is normal. No pericardial effusion. Thoracic Vessels: The aorta and pulmonary arteries demonstrate normal size. Mediastinum and Chantel: No enlarged lymph nodes. Esophagus: No wall thickening. No hiatal hernia. ABDOMEN: Liver: No solid mass. Gallbladder: No wall thickening or calcified stones. Biliary ducts: No biliary dilation. Pancreas: Normal size and morphology without visible ductal dilatation or inflammation. Spleen: Size is within normal limits. Small splenule in the inferior hilum. Adrenal Glands: No adrenal nodules. Kidneys and Ureters: Rykc-xo-vygxtern right hydronephrosis, new compared to the prior exam. Symmetric renal enhancement. 2.0 cm upper pole cortical cyst. Minimally dilated and tortuous proximal right ureter. The remaining right ureter is mildly distended. The distal right ureter is distended and redundant, likely reconstructed adrian ureter. There is an area of tortuosity and/or stenosis at the midportion of the adrian ureter. The distal most reconstructed ureter is widely patent. There is no left-sided hydronephrosis or hydroureter. Left adrian ureter is also quite distended, but symmetric with the contralateral side. No ureteral calculi or suspicious soft tissue. Stomach and Bowel: Stomach and small bowel loops are normal caliber. Normal appendix. Descending and sigmoid colon diverticulosis. Mild mural and mucosal enhancement in the mid sigmoid without pericolonic inflammatory change. Peritoneum: No abnormal intraperitoneal fluid. No free air. Ventral Wall: No significant ventral hernia. Abdominal Nodes: No retroperitoneal or mesenteric adenopathy by size criteria. Vessels: The abdominal aorta, IVC, and portal vein are of normal caliber. PELVIS: Pelvic Organs: Prostatectomy. Bladder: Neobladder is within normal limits. No suspicious wall thickening, stones, or masses. Pelvic Nodes: No enlarged lymph nodes. Miscellaneous: No inguinal hernias are seen. Bones: No aggressive osseous abnormality. IMPRESSION: Wlkc-[id number]-luszzweo right hydronephrosis, and mild distension of the [place] right ureter. There is tortuosity or stenosis of the adrian ureter. No stones or suspicious soft tissue causing obstruction. No evidence of metastatic disease in the chest, abdomen, or pelvis. Colonic diverticulosis without acute diverticulitis. Dictated by: Julianna Granado M.D. on 01/11/2025 at 13:12 Approved by: Julianna Granado M.D. on 01/11/2025 at 13:26
== END ==
LOC: CT 09:40
PROVIDERS: PCP Nurse Practitioner Family; Referring Provider Urology; Visit Provider Urology
DX: C67.9 Malignant neoplasm of bladder, unspecified (principal); N13.30 Unspecified hydronephrosis; N28.1 Cyst of kidney, acquired; K57.30 Diverticulosis of large intestine without perforation or abscess without bleeding; N28.82 Megaloureter
CPT/HCPCS: 71260; 74177; Q9967

== ENCOUNTER → 2025-01-30 09:45 | Outpatient (CLI) | payer MEDICARE, BC, SELFPAY ==
[2025-01-30 12:20] LABS: Vitamin B12 327 pg/mL (239-931)
== END ==
PROVIDERS: Physician Assistant; PCP Nurse Practitioner Family; Referring Provider Urology; Visit Provider Urology
DX: C67.9 Malignant neoplasm of bladder, unspecified (principal)
CPT/HCPCS: 36415; 82607